=== PATIENT | female | born 1930 | race Caucasian/White ===

== ENCOUNTER 2016-03-28 14:16 | Inpatient (IN) | payer OTHER, MEDICARE ==
[~2016-03-28 14:16] MED LIST: ALBUTEROL 3 ML3 ML INH; ALEVE220 MG PO; ASPIR 8181 MG PO; AUGMENTIN 500M500 MG PO; CALCIMIN-300300 MG PO; CALCIUM 600600 M1 PO; CITALOPRAM20 MG PO; ENALAPRIL MALEAT5 MG PO; ERYTHROMYCIN5 MG/GM OS; HYDROCORTISONE V0.2% TOP; IMODIUM 2 MG. CA2 MG PO; KETOCONAZOLE 2%30 GM TOP; LOVASTATIN40 MG PO; MYCOSTATIN POWD15 GM TOP; NORCO 325 MG-51 TAB PO; PANTOPRAZOLE SO40 MG PO; PRAVACHOL40 MG PO; PREDNISONE 20MG20 MG PO; PREDNISONE10 MG PO; PRILOSEC 20MG C20 MG PO; PROAIR HFA0.09 MG/Ac INH; Robitussin PO; TESSALON PERLE100 MG PO; THERMAZENE TOP; TRAZODONE50 MG PO; VICODIN5-300 PO; VITAMIN D1000 IU PO
[2016-03-28] MEDS ORDERED: CITALOPRAM HBR20 MG PO (14:23)
[2016-03-28] MEDS ORDERED: LOSARTAN POTASS25 M1 PO (14:24)
[2016-03-28] MEDS ORDERED: OMEPRAZOLE20 M2 PO (14:24)
[2016-03-28] MEDS ORDERED: OXYCODONE-ACET1 EACH PO (14:24)
[2016-03-28] MEDS ORDERED: CALTRATE 600 +1 EACH PO (14:25)
[2016-03-28] MEDS ORDERED: PROAIR HFA8.5 GM INH (14:25)
--- NOTE | 2016-03-28 14:25 | ED GENERAL ADULT ---
History of Present Illness General Chief Complaint: Syncope and Near-Syncope Stated Complaint: BIBA +SYNCOPE Source: Healthcare aide Exam Limitations: patient's age, confusion, poor historian, physical impairment Vital Signs & Intake/Output Vital Signs & Intake/Output Vital Signs Date Time Temp Pulse Resp B/P Pulse O2 O2 Flow FiO2 Ox Delivery Rate 03/28 2110 97.4 66 20 134/82 94 Room Air 03/28 2030 96.0 69 16 142/92 96 03/28 1855 98.8 74 16 129/64 94 Room Air 03/28 1700 67 16 116/57 96 Room Air 03/28 1430 96 Room Air 03/28 1425 98.2 72 12 129/63 96 Room Air Allergies Coded Allergies: benzethonium chloride (Severe, RASH 03/28/16) Reconcile Medications Albuterol Sulfate (Proair Hfa) 90 MCG HFA.AER.AD 2 PUF INH Q4-6 PRN PRN BREATHING (Reported) Calcium Carbonate/Vitamin D3 (Caltrate 600 + D Tablet) 600 MG-800 TABLET 1 TAB PO DAILY SUPPLEMENT (Reported) Carbidopa/Levodopa (Carbidopa-Levodopa 25-250 Tab) 25 MG-250 MG TABLET MEMORY ( Reported) Citalopram Hydrobromide (Citalopram HBr) 20 MG TABLET 1 TAB PO DAILY DEPRESSION (Reported) Losartan Potassium 25 MG TABLET 1 TAB PO DAILY HTN (Reported) Omeprazole 20 MG CAPSULE.DR 1 CAP PO DAILY GERD (Reported) Oxycodone HCl/Acetaminophen (Oxycodone-Acetaminophen 5-325) 5 MG-325 MG TABLET 1 TAB PO BIDP PAIN (Reported) Triage Nurses Notes Reviewed? yes Onset: Abrupt Duration: day(s): Timing: recent history HPI: 03/28/16 85-year-old female presents to the emergency department status post multiple episodes of vomiting and a large bowel movement today. The patient was being ambulated and had an episode of vomiting and also a bowel movement today. This was while she was being ambulated, she felt weak afterwards and her legs nearly gave out. The onset of the symptoms was abrupt, the duration has been just today, the severity is significant as her symptoms required to come to the emergency department for care. Past History Medical History Any Pertinent Medical History? see below for history Neurological: Parkinson's disease, "THORAZINE SHUFFLE" ? 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 No Review of Systems Review of Systems Constitutional: Denies: fever. EENTM: Reports: no symptoms. Respiratory: Denies: short of breath. Cardiovascular: Denies: chest pain. GI: Reports: vomiting. Genitourinary: Reports: no symptoms. Musculoskeletal: Reports: see HPI. Skin: Reports: no symptoms. Neurological/Psychological: Reports: confusion. Hematologic/Endocrine: Reports: no symptoms. Physical Exam Physical Exam General Appearance: alert, nonverbal Head: atraumatic Eyes: Bilateral: normal appearance, PERRL, EOMI. Ears, Nose, Throat: dry mucous membranes Neck: supple Respiratory: decreased breath sounds Cardiovascular: regular rate/rhythm Peripheral Pulses: 4+ radial (R), 4+ radial (L) Gastrointestinal: soft, non-tender Back: decreased range of motion Extremities: no edema Neurologic/Psych: awake Skin: intact, warm/dry Core Measures ACS in differential dx? No CVA/TIA Diagnosis: No Severe Sepsis Present: No Septic Shock Present: No Progress Differential Diagnoses I considered the following diagnoses in my evaluation of the patient: [Viral syndrome, diverticulitis, ischemic colitis, partial bowel obstruction, volvulus] Chest x-ray shows no acute findings CT scan of the head was negative CT scan of the abdomen results below PATIENT: LINDSAY BROOKS PRESENT AGE: 85 PATIENT ACCOUNT NO: [id number] : [birth year] LOCATION: [facility] ORDERING PHYSICIAN: DC POE DO SERVICE DATE: 03/28/16 EXAM TYPE: CAT - CT ABD & PELVIS W/O IV CONTRAS EXAMINATION: CT ABDOMEN AND PELVIS WITHOUT CONTRAST CLINICAL INFORMATION: 85-year-old female with altered mental status and vomiting. Evaluate for bowel obstruction. COMPARISON: Chest CT from 09/23/2014 TECHNIQUE: Multidetector volumetric imaging was performed from the superior aspect of the liver through the pubic symphysis. Sagittal and coronal reformatted images were obtained on the technologist's workstation. DLP: 313 mGy-cm. FINDINGS: LUNG BASES: Cardiomegaly and atherosclerotic disease of coronary arteries and visualized thoracic aorta. No pulmonary edema. No pericardial or pleural effusion. LIVER, GALLBLADDER, AND BILIARY TREE: Liver is unremarkable for a noncontrast examination. No focal hepatic lesion or intrahepatic bile duct dilatation. There are noncalcified gallstones; these are more clearly seen on the prior chest CT of 09/23/2014. No gallbladder wall edema or pericholecystic inflammatory change PANCREAS: Unremarkable. SPLEEN: Spleen is normal in size. 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 ADRENAL GLANDS: Unremarkable. KIDNEYS AND URETERS: No hydronephrosis or nephrolithiasis. Bilateral renal cortical cysts, largest on the left measuring up to 2.4 cm. The ureters are unremarkable. BLADDER: Unremarkable. GASTROINTESTINAL TRACT: Fjinzqvf-cc-xkkxj hiatal hernia, unchanged in size compared to 09/23/2014. Stomach is moderately distended with fluid and has air-fluid levels. Below the level of the diaphragm, the gastric body has altered configuration compared to 09/23/2014. The gastric body appears partially folded, and the gastric antrum is relatively high in position compared to the to the gastric body. 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 Small and large bowel are normal in size. Pancolonic diverticulosis without diverticulitis. No ascites or pneumoperitoneum. ABDOMINAL WALL: Unremarkable. LYMPH NODES: No pathologic sized lymph nodes within the abdomen or pelvis. VASCULAR: There is atherosclerotic calcification of the abdominal aorta and iliac arteries without aneurysm. 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 PELVIC VISCERA: There are myometrial vascular calcifications. Multiple phleboliths within the lower pelvis. No pelvic free fluid. OSSEOUS STRUCTURES: Multilevel severe degenerative disc disease of the lumbar spine. Old anterior compression fracture deformities of T11 and L1 vertebral bodies. IMPRESSION: 1. Iridyiqz-pu-gurfh hiatal hernia. Below the level of the diaphragm, the orientation of the stomach appears altered compared to 09/23/2014. The gastric body appears partially folded, and the gastric antrum is relatively high in position compared to the to the gastric body. 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 2. Pancolonic diverticulosis without diverticulitis. 3. 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 DICTATED BY: DWAYNE RIDLEY MD DATE/TIME DICTATED:03/28/161653 AGENCY SALES DEVELOPMENT ASSOCIATE:AASHISH DATE/TIME TRANSCRIBED:03/28/161653 CONFIDENTIAL, DO NOT COPY WITHOUT APPROPRIATE AUTHORIZATION. <Electronically signed in Other Vendor System> SIGNED BY: DWAYNE RIDLEY MD 03/28/161721 The patient was treated with IV fluids. Surgical consultation was requested. I spoke with Dr. Correa and the surgical PA. Dr. Islas accepted the patient for admission. Plan of Care: Orders Procedure Date/time Status Nothing by Mouth 03/29 B Active Code Status 03/28 2125 Complete Code Status 03/28 2125 Active Pathway - chart 03/28 2100 Active House Staff 03/28 2100 Active Patient Data 03/28 2100 Active Code Status 03/28 2100 Complete Vital Signs 03/28 2044 Active Teach/Educate 03/28 2044 Active Nutritional Intake, Monitor 03/28 2044 Active Isolation 03/28 2044 Active Intake & Output 03/28 2044 Active Patient Care Conference 03/28 2044 Active Activity/Ambulation 03/28 2044 Active Patient Data 03/28 1927 Active Admit to inpatient 03/28 1925 Active Vital Signs 03/28 1925 Active Code Status 03/28 1925 Complete TROPONIN LEVEL 03/28 1448 Complete PROTHROMBIN TIME 03/28 1448 Complete COMPREHENSIVE METABOLIC PANEL 03/28 1448 Complete CBC WITHOUT DIFFERENTIAL 03/28 1448 Complete Intake & Output 03/28 1427 Active EKG 03/28 1418 Active SWALLOW EVALUATION 03/28 UNK Active PT Evaluate & Treat 03/28 UNK Active VTE Mechanical Prophylaxis 03/28 UNK Active Current Medications Sig/Song Start time Last Medication Dose Stop Time Status Admin Carbidopa/Levodopa 2 TAB DAILY 03/29 1000 AC (Sinemet 25/250MG) Citalopram 20 MG DAILY 03/29 1000 AC Hydrobromide (Celexa) Losartan Potassium 25 MG DAILY 03/29 1000 AC (Cozaar) Omeprazole 20 MG DAILY AC 03/29 0700 AC (Prilosec) Heparin Sodium 5,000 UNIT Q8 03/28 2200 AC (Porcine) Ondansetron HCl 4 MG Q6P PRN 03/28 2200 UNVr (Zofran) Dextrose/Sodium 1,000 ML Q13H 03/28 2130 AC Chloride 03/29 1029 (D5W-1/2 Normal Saline 1000ML) Albuterol Sulfate 2 PUF Q4-6 PRN PRN 03/28 211 AC (Ventolin) Acetaminophen 325 MG Q6P PRN 03/28 2100 AC (Tylenol) Laboratory Tests 03/28/16 1523: Anion Gap 11, Estimated GFR 52 L, BUN/Creatinine Ratio 22.0, Glucose 122 H, Calcium 9.5, Total Bilirubin 0.8, AST 20, ALT 7 L, Alkaline Phosphatase 98, Troponin I 0.02, Total Protein 7.8, Albumin 4.0, Globulin 3.8, Albumin/Globulin Ratio 1.1, PT 11.8, INR 1.13, CBC w Diff NO MAN DIFF REQ, RBC 5.17, MCV 85.1, MCH 28.2, RDW 13.9, MPV 9.5, Gran % 77.4 H, Lymphocytes % 14.4 L, Monocytes % 6.5, Eosinophils % 1.2, Basophils % 0.5, Absolute Granulocytes 5.3, Absolute Lymphocytes 1.0 L, Absolute Monocytes 0.4, Absolute Eosinophils 0.1, Absolute Basophils 0, PUBS MCHC 33.1 Initial ED EKG: no ST T wave changes Departure Departure Disposition: STILL A PATIENT Condition: Stable Clinical Impression Primary Impression: Abdominal pain Secondary Impressions: Dehydration, Parkinson disease, Weakness Referrals: KAR ISLAS MD (PCP/Family) Referred to [facility] as new patient No Departure Forms: Customer Survey General Discharge Information Admission Note Spoke With: KAR ISLAS MD Documentation of Exam: Documentation of any treatments & extenuating circumstances including Concerns Regarding Discharge (functional status, medication knowledge or non-compliance, living conditions, etc.) that warrant an admission rather than observation: [IV fluids, surgical consultation, IV antiemetics,] Critical Care Note Critical Care Note Critical Care Time: non-applicable
[2016-03-28] MEDS ORDERED: CARBIDOPA-LEVO1 EAC8 PO (14:26)
[2016-03-28 15:33] LABS: ABSOLUTE BASOPHIL COUNT 0 /CUMM (0.0-0.2); ABSOLUTE EOSINOPHIL COUNT 0.1 /CUMM (0.0-0.7); ABSOLUTE GRANULOCYTE CT 5.3 /CUMM (1.4-6.5); ABSOLUTE MONOCYTE COUNT 0.4 /CUMM (0.10-0.60); BASOPHIL % 0.5 % (0.0-2.0); EOSINOPHIL % 1.2 % (0-5); GRANULOCYTE % 77.4 % (42.2-75.2); MEAN CORPUSCULAR HGB 28.2 PG (27.0-31.0); MEAN CORPUSCULAR HGB CONC 33.1 G/DL (33.0-37.0); MEAN CORPUSCULAR VOLUME 85.1 FL (81.0-99.0); MEAN PLATELET VOLUME 9.5 FL (7.4-10.4); PLATELET COUNT 249 /CUMM (130-400); RBC DISTRIBUTION WIDTH 13.9 % (11.5-14.5); RED BLOOD CELL CT 5.17 /CUMM (4.20-5.40); WHITE BLOOD CELL COUNT 6.8 /CUMM (4.8-10.8)
[2016-03-28 15:44] LABS: PT 11.8 SEC (9.4-12.5)
--- NOTE | 2016-03-28 16:15 | RADIOLOGY REPORT ---
EXAMINATION: XR PORTABLE CHEST CLINICAL INFORMATION: Altered mental status. Vomiting. Rule out aspiration. COMPARISON: Multiple priors, most recently 10/26/2014 TECHNIQUE: Portable view of the chest was obtained. FINDINGS: Cardiac leads overlie the chest. The lungs are well expanded. Chronic appearing interstitial changes are noted. Moderate hiatal hernia noted. Minimal left basilar atelectasis. No dense consolidation. No pleural effusion or pneumothorax. The cardiomediastinal silhouette is unchanged, with a calcified aorta. Degenerative changes at the left shoulder. IMPRESSION: Chronic changes. Hiatal hernia with minimal associated atelectasis. No consolidation.
--- NOTE | 2016-03-28 17:00 | CT SCAN REPORT ---
EXAMINATION: CT HEAD WITHOUT CONTRAST CLINICAL INFORMATION: Altered mental status COMPARISON: 07/23/2012 TECHNIQUE: Contiguous axial imaging was performed from the skull base to vertex without intravenous contrast. DLP: 601 mGy-cm. FINDINGS: Patient positioning somewhat limits the evaluation. There is no evidence of acute intracranial hemorrhage or territorial infarction. No abnormal mass effect or midline shift is seen. Monsalve to white matter differentiation is well preserved. No extra-axial fluid collections are identified. No hydrocephalus. Proportional prominence of the ventricles and sulcal spaces is consistent with moderate volume loss. Patchy periventricular and deep white matter hypoattenuation is consistent with mild small vessel ischemic changes. The osseous structures and soft tissues are normal. There is moderate opacification of the maxillary sinuses and left sphenoid sinus. The mastoid air cells are well aerated. IMPRESSION: No acute intracranial pathology. Volume loss with small vessel ischemic change. Moderate paranasal sinus opacification is increased from prior.
--- NOTE | 2016-03-28 17:22 | CT SCAN REPORT ---
EXAMINATION: CT ABDOMEN AND PELVIS WITHOUT CONTRAST CLINICAL INFORMATION: 85-year-old female with altered mental status and vomiting. Evaluate for bowel obstruction. COMPARISON: Chest CT from 09/23/2014 TECHNIQUE: Multidetector volumetric imaging was performed from the superior aspect of the liver through the pubic symphysis. Sagittal and coronal reformatted images were obtained on the technologist's workstation. DLP: 313 mGy-cm. FINDINGS: LUNG BASES: Cardiomegaly and atherosclerotic disease of coronary arteries and visualized thoracic aorta. No pulmonary edema. No pericardial or pleural effusion. LIVER, GALLBLADDER, AND BILIARY TREE: Liver is unremarkable for a noncontrast examination. No focal hepatic lesion or intrahepatic bile duct dilatation. There are noncalcified gallstones; these are more clearly seen on the prior chest CT of 09/23/2014. No gallbladder wall edema or pericholecystic inflammatory change PANCREAS: Unremarkable. SPLEEN: Spleen is normal in size. 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 ADRENAL GLANDS: Unremarkable. KIDNEYS AND URETERS: No hydronephrosis or nephrolithiasis. Bilateral renal cortical cysts, largest on the left measuring up to 2.4 cm. The ureters are unremarkable. BLADDER: Unremarkable. GASTROINTESTINAL TRACT: Rnkgycrm-pt-xxsqy hiatal hernia, unchanged in size compared to 09/23/2014. Stomach is moderately distended with fluid and has air-fluid levels. Below the level of the diaphragm, the gastric body has altered configuration compared to 09/23/2014. The gastric body appears partially folded, and the gastric antrum is relatively high in position compared to the to the gastric body. 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 Small and large bowel are normal in size. Pancolonic diverticulosis without diverticulitis. No ascites or pneumoperitoneum. ABDOMINAL WALL: Unremarkable. LYMPH NODES: No pathologic sized lymph nodes within the abdomen or pelvis. VASCULAR: There is atherosclerotic calcification of the abdominal aorta and iliac arteries without aneurysm. 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 PELVIC VISCERA: There are myometrial vascular calcifications. Multiple phleboliths within the lower pelvis. No pelvic free fluid. OSSEOUS STRUCTURES: Multilevel severe degenerative disc disease of the lumbar spine. Old anterior compression fracture deformities of T11 and L1 vertebral bodies. IMPRESSION: 1. Ihvrqjyd-ny-nzavb hiatal hernia. Below the level of the diaphragm, the orientation of the stomach appears altered compared to 09/23/2014. The gastric body appears partially folded, and the gastric antrum is relatively high in position compared to the to the gastric body. 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 2. Pancolonic diverticulosis without diverticulitis. 3. 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
--- NOTE | 2016-03-28 20:06 | Cons- General Surgery ---
See Addendum General Information and HPI Consulting Request Date of Consult: 03/28/16 Requested By: KAR ISLAS MD Reason for Consult: Vomiting and possible mesenteric volvulus on CAT scan Source of Information: old records, [facility] Exam Limitations: unable to give history, not alert/orientated, dementia History of Present Illness: This is an 85-year-old female sent from care facility due to a presyncopal episode and associated two episodes of vomiting. The emergency department workup revealed a possible mesenteric volvulus on CAT scan. The patient has a known hiatal hernia and had a large bowel movements with no episodes of vomiting while in the emergency department. The patient is minimally verbal and unable to give any history. She appears comfortable and per nursing staff no pressing issues. Allergies/Medications Allergies: Coded Allergies: MDX - Benzethonium (From PERINEAL SKIN CLEANSER) (Mild, RASH 09/19/14) Home Med List: Albuterol Sulfate (Proair Hfa) 90 MCG HFA.AER.AD 2 PUF INH Q4-6 PRN PRN BREATHING (Reported) Calcium Carbonate/Vitamin D3 (Caltrate 600 + D Tablet) 600 MG-800 TABLET 1 TAB PO DAILY SUPPLEMENT (Reported) Carbidopa/Levodopa (Carbidopa-Levodopa 25-250 Tab) 25 MG-250 MG TABLET MEMORY ( Reported) Citalopram Hydrobromide (Citalopram HBr) 20 MG TABLET 1 TAB PO DAILY DEPRESSION (Reported) Losartan Potassium 25 MG TABLET 1 TAB PO DAILY HTN (Reported) Omeprazole 20 MG CAPSULE.DR 1 CAP PO DAILY GERD (Reported) Oxycodone HCl/Acetaminophen (Oxycodone-Acetaminophen 5-325) 5 MG-325 MG TABLET 1 TAB PO BIDP PAIN (Reported) Past History Medical History Neurological: "THORAZINE SHUFFLE" ? 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 Surgical History Pertinent Surgical History: knee replacement, SHOULDER REPLACEMENT Family History Relations & Conditions If Any: Relation not specified for: *No pertinent family history Psychosocial History Services at Home: Home Health Aide, Nursing Review of Systems Review of Systems: Unable to obtain due to mental status Exam & Diagnostic Data Vital Signs and I&O Vital Signs Date Time Temp Pulse Resp B/P Pulse O2 O2 Flow FiO2 Ox Delivery Rate 03/28 1855 98.8 74 16 129/64 94 Room Air 03/28 1700 67 16 116/57 96 Room Air 03/28 1430 96 Room Air 03/28 1425 98.2 72 12 129/63 96 Room Air Intake & Output 03/28 1600 03/28 0800 03/28 0000 03/27 1600 03/27 0800 03/27 0000 Intake Total 0 Output Total Balance 0 Intake, Oral 0 Laboratory Tests 03/28 1523 Chemistry Sodium (137 - 145 mmol/L) 139 Potassium (3.5 - 5.1 mmol/L) 4.2 Chloride (98 - 107 mmol/L) 96 L Carbon Dioxide (22 - 30 mmol/L) 32 H Anion Gap (5 - 16) 11 BUN (7 - 17 mg/dL) 22 H Creatinine (0.5 - 1.0 mg/dL) 1.0 Estimated GFR (>60 ml/min) 52 L BUN/Creatinine Ratio (7 - 25 %) 22.0 Glucose (65 - 99 mg/dL) 122 H Calcium (8.4 - 10.2 mg/dL) 9.5 Total Bilirubin (0.2 - 1.3 mg/dL) 0.8 AST (14 - 36 U/L) 20 ALT (9 - 52 U/L) 7 L Alkaline Phosphatase (<127 U/L) 98 Troponin I (< 0.11 ng/ml) 0.02 Total Protein (6.3 - 8.2 g/dL) 7.8 Albumin (3.5 - 5.0 g/dL) 4.0 Globulin (1.9 - 4.2 gm/dL) 3.8 Albumin/Globulin Ratio (1.1 - 2.2 %) 1.1 Coagulation PT (9.4 - 12.5 SEC) 11.8 INR (0.90 - 1.19) 1.13 Hematology CBC w Diff NO MAN DIFF REQ WBC (4.8 - 10.8 /CUMM) 6.8 RBC (4.20 - 5.40 /CUMM) 5.17 Hgb (12.0 - 16.0 G/DL) 14.6 Hct (37 - 47 %) 44.0 MCV (81.0 - 99.0 FL) 85.1 MCH (27.0 - 31.0 PG) 28.2 RDW (11.5 - 14.5 %) 13.9 Plt Count (130 - 400 /CUMM) 249 MPV (7.4 - 10.4 FL) 9.5 Gran % (42.2 - 75.2 %) 77.4 H Lymphocytes % (20.5 - 51.1 %) 14.4 L Monocytes % (1.7 - 9.3 %) 6.5 Eosinophils % (0 - 5 %) 1.2 Basophils % (0.0 - 2.0 %) 0.5 Absolute Granulocytes (1.4 - 6.5 /CUMM) 5.3 Absolute Lymphocytes (1.2 - 3.4 /CUMM) 1.0 L Absolute Monocytes (0.10 - 0.60 /CUMM) 0.4 Absolute Eosinophils (0.0 - 0.7 /CUMM) 0.1 Absolute Basophils (0.0 - 0.2 /CUMM) 0 PUBS MCHC (33.0 - 37.0 G/DL) 33.1 CAT scan of the abdomen and pelvis.: MPRESSION: 1. Jkftrdsi-xn-nwwao hiatal hernia. Below the level of the diaphragm, the orientation of the stomach appears altered compared to 09/23/2014. The gastric body appears partially folded, and the gastric antrum is relatively high in position compared to the to the gastric body. 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 2. Pancolonic diverticulosis without diverticulitis. 3. 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 Physical Exam: Gen.: Alert but minimally verbal and in no obvious distress Skin: Warm and dry without jaundice Cardiac: S1-S2 regular Pulmonary: Bilateral breath sounds are equal with fine expiratory wheezes Abdomen: Soft, nontender, nondistended, bowel sounds positive. No masses or hernias were appreciated. Erythema and rash under the pannicular folds consistent with a yeast infection Extremities: Bilateral lower extremities are warm without calf tenderness or significant edema. Assessment/Plan Assessment/Plan S1: 85-year-old female brought into the emergency department with a presyncopal episode and episodes of emesis. The CAT scan was reviewed by myself and Clarence Varner MD and compared to a previous CAT scan and there is definite hiatal hernia but we see no evidence of volvulus or urgent surgical intervention. She has a benign abdominal exam with reasonable laboratory studies. Recommendations: No surgical intervention the current time continue care per emergency department staff primary care physician Thank you for consultation Problem List: 1. Vomiting Consult Acknowledgment - Thank you for your consult request.
[2016-03-28 21:10] VITALS: BP 134/82
--- NOTE | 2016-03-28 21:13 | History & Physical ---
General Information and HPI MD Statement: I have seen and personally examined LINDSAY BROOKS and documented this H&P. The patient is a 85 year old F who presented with a patient stated chief complaint of [generalized weakness and a large bowel movement with presyncopal episode]. Source of Information: family, old records, [facility] Exam Limitations: unable to give history, not alert/orientated, dementia History of Present Illness: 85/F with PMH of HTN, HLD, Parkinson's disease, and GI bleed who was brought to [facility] ED by her son because of generalized weakness and the large bowel movement earlier today. Patient was walked by her nurse to the bathroom when she suddenly felt weak and was about to fall if her nurse did not support her. Eventually she made it to the toilet and the nurse reported a large nonbloody bowel movement. Patient also had an episode of nonbloody vomiting. During the last week patient has poor appetite and was weak. Patient did not have symptoms of acute abdomen as fever, chills, diarrhea, or abdominal pain. No chest pain, palpitation, dizziness, or urinary symptom. Patient did not fall or lose consciousness. At baseline patient use a walker to ambulate. She has 24/7 nursing aid. Allergies/Medications Allergies: Coded Allergies: benzethonium chloride (Severe, RASH 03/28/16) Home Med list Albuterol Sulfate (Proair Hfa) 90 MCG HFA.AER.AD 2 PUF INH Q4-6 PRN PRN BREATHING (Reported) Calcium Carbonate/Vitamin D3 (Caltrate 600 + D Tablet) 600 MG-800 TABLET 1 TAB PO DAILY SUPPLEMENT (Reported) Carbidopa/Levodopa (Carbidopa-Levodopa 25-250 Tab) 25 MG-250 MG TABLET MEMORY ( Reported) Citalopram Hydrobromide (Citalopram HBr) 20 MG TABLET 1 TAB PO DAILY DEPRESSION (Reported) Losartan Potassium 25 MG TABLET 1 TAB PO DAILY HTN (Reported) Omeprazole 20 MG CAPSULE.DR 1 CAP PO DAILY GERD (Reported) Oxycodone HCl/Acetaminophen (Oxycodone-Acetaminophen 5-325) 5 MG-325 MG TABLET 1 TAB PO BIDP PAIN (Reported) Past History Travel History Traveled to [place] past 21 day No Medical History Neurological: "THORAZINE SHUFFLE" ? 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 Denies: chills, fever. Cardiovascular: Denies: chest pain, orthopena, palpitations, peripheral edema, syncope. Respiratory: Denies: cough, short of breath, wheezing. GI: Reports: vomiting. Denies: abdominal pain, constipation, diarrhea, nausea, bloody stool. Genitourinary: Denies: dysuria. Skin: Denies: rash. Exam & Diagnostic Data Last 24 Hrs of Vital Signs/I&O Vital Signs Date Time Temp Pulse Resp B/P Pulse O2 O2 Flow FiO2 Ox Delivery Rate 03/29 0024 97.5 62 20 160/80 96 03/28 2110 97.4 66 20 134/82 94 Room Air 03/28 2030 96.0 69 16 142/92 96 03/28 1855 98.8 74 16 129/64 94 Room Air 03/28 1700 67 16 116/57 96 Room Air 03/28 1430 96 Room Air 03/28 1425 98.2 72 12 129/63 96 Room Air Intake & Output 03/29 0800 03/29 0000 03/28 1600 Intake Total 150 0 Output Total Balance 150 0 Intake, IV 150 Intake, Oral 0 0 Physical Exam General Appearance Alert, Cooperative, No Acute Distress, not oriented, minimally verbal at baseline, always use 1 word to respond Skin No Rashes HEENT Atraumatic, PERRLA, EOMI, Mucous Membr. moist/pink Neck No JVD Cardiovascular Regular Rate, Normal S1, Normal S2, No Murmurs Lungs Clear to Auscultation, Normal Air Movement Abdomen Soft, No Tenderness Extremities No Cyanosis, No Edema Last 24 Hrs of Labs/Jean: Laboratory Tests 03/28/16 1523: Anion Gap 11, Estimated GFR 52 L, BUN/Creatinine Ratio 22.0, Glucose 122 H, Calcium 9.5, Total Bilirubin 0.8, AST 20, ALT 7 L, Alkaline Phosphatase 98, Troponin I 0.02, Total Protein 7.8, Albumin 4.0, Globulin 3.8, Albumin/Globulin Ratio 1.1, PT 11.8, INR 1.13, CBC w Diff NO MAN DIFF REQ, RBC 5.17, MCV 85.1, MCH 28.2, RDW 13.9, MPV 9.5, Gran % 77.4 H, Lymphocytes % 14.4 L, Monocytes % 6.5, Eosinophils % 1.2, Basophils % 0.5, Absolute Granulocytes 5.3, Absolute Lymphocytes 1.0 L, Absolute Monocytes 0.4, Absolute Eosinophils 0.1, Absolute Basophils 0, PUBS MCHC 33.1 Assessment/Plan Assessment: Assessment and plan #presyncopal in the setting of Vomiting and large bowel movements CAT scan evidence hiatal hernia, gastric body appears partially folded, 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 Surgery was consulted and they recommended conservative management with no interventions, as there is no evidence of acute abdomen at the moment. * We will gently hydrate with D5W half normal saline at rate of 75 mL/H. * IV Zofran when necessary for nausea. * PT evaluation in a.m. for safe disposition * We will repeat BEP at a.m #GERD * Omeprazole 20 mg by mouth daily #Hypertension * Continue losartan 25 mg by mouth daily #Parkinsonism * We will continue carbidopa/levodopa #Dysphagia * Nothing by mouth until swallow evaluation at a.m. Fluid :IV normal saline Diet :NPO Pain: Acetaminophen(Tylenol) DVT ppx: SC heparin CODE STATUS: Full code As Ranked By This Provider Problem List: 1. Weakness 2. Parkinson disease 3. Vomiting Core Measures/Miscellaneous Acute Coronary Syndrome ACS Diagnosis: No Cerebrovascular Accident CVA/TIA Diagnosis: No Congestive Heart Failure CHF Diagnosis: No Venous Thromboembolism VTE Risk Factors: Acute medical illness, Age > 40 VTE Prophylaxis Ordered Inpt: Mech & Pharm No Mech VTE prophylaxis d/t: No contraindications No VTE Pharm Prophylaxis d/t: No contraindications VTE Diagnosis: No VTE Type: NONE VTE Confirmed by (Test): NONE Severe Sepsis Severe Sepsis Present: No Septic Shock Septic Shock Present: No Miscellaneous Documentation Attending Case Discussed With: KAR ISLAS MD Primary Care Physician: KAR ISLAS MD Patient sees these Specialists KAR ISLAS MD Level of Patient Care: General Medicine Resident Review Statement Resident Statement: examined this patient, discussed with communications intern Other Findings: Patient is 85-year-old female minimally verbal at baseline with past medical history of hypertension, hyperlipidemia, GI bleed, parkinsonism who was brought into the hospital from home by his son for increased weakness and a large bowel movement today. Patient's onset that she went to the bathroom this morning with her nurse, and certainly felt weak and her legs gave up. She was supported and put on the toilet by her nurse and apparently she had a large bowel movement. She also had one episode of vomiting. The bowel was normal consistency, no blood noticed. Patient did not have any fever, chills, nausea, abdominal pain, diarrhea, constipation, palpitations, chest pain, urinary symptoms. No sick contacts. No falls/syncopal episodes. Patient's son states that she has been a little weak over the last few days with poor by mouth intake. At baseline, she walks with a walker and has been a 24 hour nursing care. In the ED vitals temperature 98.2, pulse 72, respiration 12, blood pressure 129/ 62, saturating 96% on room air. Pertinent labs showed creatinine of 1(baseline 1.2), negative troponins, normal electrolytes. Chest x-ray: Chronic changes with hiatal hernia and minimal atelectasis. No consolidation. Head CT: Negative. Abdomen and pelvis CT showed moderate to large hiatal hernia. 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 Pancolitic diverticulosis without diverticulitis. 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 Surgery Dr. Correa reviewed the CAT scan and felt as there was no evidence of volvulus , no need of any urgent surgical intervention. Physical exam: Gen.: Awake, alert minimally verbal at baseline, no apparent distress HEENT: PERRLA, EOMI CVS: S1-S2, no murmurs Respiration: Good air entry, mild crackles at bases bilaterally Neurological: Resting Tremors Extremities: No edema, good pulses Plan: * Vomiting and diarrhea with CAT scan evidence of ?partial mesenteroaxial volvulus * Weakness and deconditioning * Hypertension and hyperlipidemia * Parkinsonism * Dysphagia Recommendations * Admit to [facility] * Gentle hydration with normal saline at 75 mL an hour * Nothing by mouth pending swallow evaluation * Swallow eval in a.m. * IV Zofran when necessary for nausea * Surgery consulted, conservative measures, no need of urgent surgical intervention as no evidence of volvulus on CAT scan and benign abdominal examination * PT evaluation in a.m. for safe disposition * Continue Sinemet for parkinsonism * Continue losartan for hypertension * Subcutaneous heparin for DVT prophylaxis * Full code
[2016-03-29 00:24] VITALS: BP 160/80
--- NOTE | 2016-03-29 07:09 | Admission Certification ---
Admission Certification Certification Statement - As attending physician, I certify that at the time of - admission, based on clinical presentation, severity of - symptoms, need for further diagnostic testing and - therapeutic interventions, and risk of adverse outcomes - without in-hospital treatment, in my clinical assessment, - this patient requires an acute hospital stay for a minimum - of two nights or longer. I have also considered psychsocial - factors such as support system, advanced age, financial - issues, cognitive issues, and failed out-patient treatments, - past re-admission history, safety of patient, and lack of - compliance as applicable. Specific rationale supporting this admission is: Patient is admitted to the hospital for abdominal pain with nausea and vomiting.
--- NOTE | 2016-03-29 07:15 | PN- Att Addend ---
Attending Addendum Attending Brief Note Attending admitting note. 85-year-old lady presents to the emergency room with generalized weakness and apparently had a large BM with questionable presyncopal episode. Patient has history long-standing history of Parkinson's disease with some autonomic dysfunction in the past at times when she goes to the bathroom she has question of her syncopal episodes probably due to autonomic dysfunction Past medical history of Parkinson's disease hypertension dyslipidemia history of coronary artery disease history of GERD OSTEOARTHRITIS of the shoulders and the knees. History of also mild dementia patient is hard of hearing. On examination patient is awake alert hard of hearing. Vital signs blood pressure is 150/80 heart rate is 64 respirations 17 S1-S2 is normal Lungs are clear Abdomen is soft nontender bowel sounds are present Patient is no focal neurological deficit. Lab shows hemoglobin is 14.6 hematocrit is 44 white count is 6.0. Sodium is 139 potassium 4.2 chloride 96 bicarbonate is 32 [place] is 22 creatinine 1.0 CAT scan of the abdomen shows evidence of hiatal hernia questionable the mesentroaxial volvulus of the stomach Patient was seen by the surgical team no active measures to be taken right now. Plan is to mobilize the patient. The patient out of bed to chair. Consider short-term rehabilitation Continue IV fluids questionable Zofran for nausea. Continue rest of the medications
[2016-03-29 08:18] VITALS: BP 120/64
--- NOTE | 2016-03-29 11:26 | PN- Housestaff ---
Subjective Follow-up For: 1. 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 Failure to thrive - weakness and deconditioning 3. Parkinsonism 4. Dysphagia Subjective: Patient seen and examined at bedside. She remains awake and alert but minimally verbal at baseline. She apperas to be in no apparent distress. Remains afebrile and HDS with stable VS. Pending for swallow eval today. Review of Systems Constitutional: Reports: see HPI. Objective Last 24 Hrs of Vital Signs/I&O Vital Signs Date Time Temp Pulse Resp B/P Pulse O2 O2 Flow FiO2 Ox Delivery Rate 03/29 1845 97.5 60 20 124/78 95 03/29 0952 68 122/78 03/29 0818 97.7 60 20 120/64 94 Room Air 03/29 0024 97.5 62 20 160/80 96 03/28 2110 97.4 66 20 134/82 94 Room Air 03/28 2030 96.0 69 16 142/92 96 Intake & Output 03/29 1600 03/29 0800 03/29 0000 Intake Total 500 600 150 Output Total Balance 500 600 150 Intake, IV 500 600 150 Intake, Oral 0 0 0 Number 0 Bowel Movements Physical Exam General Appearance: Alert, Oriented X3, Cooperative, No Acute Distress Other Physical Findings: HEENT: PERRLA, EOMI CVS: S1-S2, no murmurs Respiration: Good air entry, mild crackles at bases bilaterally Neurological: Resting Tremors Extremities: No edema, good pulses Current Medications: Current Medications Sig/Song Start time Last Medication Dose Route Stop Time Status Admin Acetaminophen 325 MG Q6P PRN 03/28 2100 AC PO Albuterol Sulfate 2 PUF Q4-6 PRN PRN 03/28 2115 AC INH Carbidopa/Levodopa 2 TAB DAILY 03/29 1000 AC 03/29 PO 0950 Citalopram 20 MG DAILY 03/29 1000 AC 03/29 Hydrobromide PO 0950 Dextrose/Sodium 1,000 ML Q20H 03/29 1245 AC 03/29 Chloride IV 03/30 0844 1245 Dextrose/Sodium 1,000 ML Q13H 03/28 2130 DC 03/28 Chloride IV 03/29 1029 2226 Heparin Sodium 5,000 UNIT Q8 03/28 2200 AC 03/29 (Porcine) SC 1419 Losartan Potassium 25 MG DAILY 03/29 1000 AC 03/29 PO 0952 Omeprazole 20 MG DAILY AC 03/29 0700 AC PO Ondansetron HCl 4 MG Q6P PRN 03/28 2200 AC IV Potassium Chloride 10 MEQ ONCE ONE 03/29 1730 DC 03/29 IV 03/29 1731 1744 Potassium Chloride 10 MEQ ONCE ONE 03/29 1730 DC IV 03/29 1731 Last 24 Hrs of Lab/Jean Results Last 24 Hrs of Labs/Mics: Laboratory Tests 03/29/16 0645: Anion Gap 9, Estimated GFR > 60, BUN/Creatinine Ratio 21.3 Assessment/Plan Assessment: 85-year-old minimally verbal female at baseline with past medical history of hypertension, hyperlipidemia, GI bleed, parkinsonism, presenting with increased weakness and deconditioning. 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 for safe disposition * Continue Sinemet for parkinsonism * Continue losartan for hypertension * Subcutaneous heparin for DVT prophylaxis * Full code Problem List: 1. Parkinson disease 2. Vomiting 3. Weakness 4. DVT prophylaxis 5. Full code status Pain Ratin Pain Location: 0 Pain Goal: Remain pain free Pain Plan: Mild pain pathway Tomorrow's Labs & Rationales: CBC BEP
--- NOTE | 2016-03-29 17:15 | RADIOLOGY REPORT ---
EXAMINATION: XR MODIFIED BARIUM SWALLOW CLINICAL INFORMATION: Aspiration risk COMPARISON: 09/20/2014 TECHNIQUE: Videotaped real-time fluoroscopic evaluation of the patient's swallow was performed in conjunction with speech therapy through the administration of various textured food and barium, including puree, honey, and nectar consistencies. Patient was in a left seated lateral position. FINDINGS: The oropharyngeal phase of swallowing was intermittently delayed throughout the exam, with lingual pumping noted. Several swallows of each consistency were performed. With puree consistency, there were episodes of premature spillage into the vallecula; no penetration or aspiration was seen. With honey thick consistency, there were multiple episodes of premature spillage into the vallecula and a single instance of penetration which did not elicit a spontaneous cough. With nectar consistency, premature spillage was observed into the vallecula and piriform sinuses to varying degrees throughout the swallows; one episode of penetration was observed which did not elicit a spontaneous cough. No patrice aspiration was seen during the exam. IMPRESSION: Single episodes of penetration observed with honey thick and nectar consistencies. No aspiration observed.
[2016-03-29 18:45] VITALS: BP 124/78
[2016-03-30 00:40] VITALS: BP 144/72
[2016-03-30 06:49] VITALS: BP 140/72
--- NOTE | 2016-03-30 12:51 | PN- Housestaff ---
SINDY CEDILLO,[facility] 03/30/16 1251: Subjective Follow-up For: 1. 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 Failure to thrive - weakness and deconditioning 3. Parkinsonism 4. Dysphagia Subjective: Patient seen and examined at bedside. She remains minimally verbal which is her baseline. She apperas to be in no apparent distress. Remains afebrile and HDS with stable VS. Review of Systems Constitutional: Reports: see HPI. Objective Last 24 Hrs of Vital Signs/I&O Vital Signs Date Time Temp Pulse Resp B/P Pulse O2 O2 Flow FiO2 Ox Delivery Rate 03/30 0833 68 140/78 03/30 0649 97.7 58 20 140/72 95 Room Air 03/30 0040 98.1 68 19 144/72 96 03/29 1845 97.5 60 20 124/78 95 Intake & Output 03/30 1600 03/30 0800 03/30 0000 Intake Total 520 900 Output Total Balance 520 900 Intake, IV 400 400 Intake, Oral 120 500 Number 1 2 Bowel Movements Physical Exam General Appearance: Alert, Oriented X3, Cooperative Cardiovascular: Regular Rate, Normal S1, Normal S2 Lungs: Clear to Auscultation, Normal Air Movement Abdomen: Normal Bowel Sounds, Soft Extremities: No Clubbing, No Cyanosis, No Edema Current Medications: Current Medications Sig/Song Start time Last Medication Dose Route Stop Time Status Admin Acetaminophen 325 MG Q6P PRN 03/28 2100 AC PO Albuterol Sulfate 2 PUF Q4-6 PRN PRN 03/28 2115 AC INH Carbidopa/Levodopa 2 TAB DAILY 03/29 1000 AC 03/30 PO 0833 Citalopram 20 MG DAILY 03/29 1000 AC 03/30 Hydrobromide PO 0833 Dextrose/Sodium 1,000 ML Q20H 03/29 1245 DC 03/29 Chloride IV 03/30 0844 1245 Heparin Sodium 5,000 UNIT Q8 03/28 2200 AC 03/30 (Porcine) SC 0646 Losartan Potassium 25 MG DAILY 03/29 1000 AC 03/30 PO 0833 Nystatin 1 [place] TID 03/30 1019 AC 03/30 TOP 1236 Omeprazole 20 MG DAILY AC 03/29 0700 AC 03/30 PO 0646 Ondansetron HCl 4 MG Q6P PRN 03/28 2200 AC IV Potassium Chloride 10 MEQ ONCE ONE 03/29 1730 DC 03/29 IV 03/29 1731 1744 Potassium Chloride 10 MEQ ONCE ONE 03/29 1730 DC 03/29 IV 03/29 1731 2037 Vitamin A/Vitamin D 1 [place] BID 03/30 0350 AC 03/30 TOP 0645 Zinc Oxide 1 [place] BID 03/30 0350 03/30 TOP 0645 Last 24 Hrs of Lab/Jean Results Last 24 Hrs of Labs/Mics: Laboratory Tests 03/30/16 0630: Anion Gap 9, Estimated GFR > 60, BUN/Creatinine Ratio 15.0 Assessment/Plan Assessment: 85-year-old minimally verbal female at baseline with past medical history of hypertension, hyperlipidemia, GI bleed, parkinsonism, presenting with increased weakness and deconditioning. 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 * IV Zofran PRN for nausea * Surgery was consulted and recommended conservative measures - no need of urgent surgical intervention as no evidence of volvulus on CAT scan and benign abdominal examination * Follow PT evaluation in a.m. for safe disposition * Continue Sinemet for parkinsonism * Continue losartan for hypertension * Subcutaneous heparin for DVT prophylaxis * Full code Problem List: 1. Parkinson disease 2. Vomiting 3. Weakness 4. Full code status Pain Ratin Pain Location: none Pain Goal: Remain pain free Pain Plan: Mild pain pathway Tomorrow's Labs & Rationales: CBC BEP KATIE CEDILLO,ARIA 03/30/16 1556: Attending MD Review Statement Attending Statement Attending MD Statement: examined this patient, agreed w/resident/PA/[employer]ING OFFIC[employer], reviewed EMR data (avail), amended to note Attending Assessment/Plan: Mrs. Jerome is minimally verbal but is in no acute distress. Her vitals are stable and her exam is benign. She appears to be tolerating by mouth intake without vomiting. I agree with the reevaluation her status in the a.m. and at that time might possibly consider discharge.
[2016-03-30 17:02] VITALS: BP 142/80
[2016-03-31 00:33] VITALS: BP 126/68
[2016-03-31 07:02] VITALS: BP 126/76
[2016-03-31 08:16] LABS: ABSOLUTE BASOPHIL COUNT 0 /CUMM (0.0-0.2); ABSOLUTE EOSINOPHIL COUNT 0.1 /CUMM (0.0-0.7); ABSOLUTE GRANULOCYTE CT 3.8 /CUMM (1.4-6.5); ABSOLUTE LYMPH COUNT 2.2 /CUMM (1.2-3.4); ABSOLUTE MONOCYTE COUNT 0.6 /CUMM (0.10-0.60); BASOPHIL % 0.6 % (0.0-2.0); EOSINOPHIL % 1.8 % (0-5); HEMATOCRIT 39.8 % (37-47); MEAN CORPUSCULAR HGB 28.2 PG (27.0-31.0); MEAN CORPUSCULAR HGB CONC 33.2 G/DL (33.0-37.0); MEAN CORPUSCULAR VOLUME 85.1 FL (81.0-99.0); PLATELET COUNT 202 /CUMM (130-400); RBC DISTRIBUTION WIDTH 13.8 % (11.5-14.5); RED BLOOD CELL CT 4.68 /CUMM (4.20-5.40); WHITE BLOOD CELL COUNT 6.7 /CUMM (4.8-10.8)
--- NOTE | 2016-03-31 08:41 | PN- Housestaff ---
Subjective Follow-up For: 1. 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 Failure to thrive - weakness and deconditioning 3. Parkinsonism 4. Dysphagia Subjective: Patient seen and examined at bedside. She remains minimally verbal which is her baseline. Remains afebrile and HDS with stable VS. She apperas to be in no apparent distress. Review of Systems Constitutional: Reports: see HPI. Objective Last 24 Hrs of Vital Signs/I&O Vital Signs Date Time Temp Pulse Resp B/P Pulse O2 O2 Flow FiO2 Ox Delivery Rate 03/31 0756 76 122/76 03/31 0702 97.4 61 20 126/76 96 03/31 0033 97.7 68 20 126/68 94 03/30 1702 98.1 66 20 142/80 95 Intake & Output 03/31 1600 03/31 0800 03/31 0000 Intake Total 50 500 Output Total Balance 50 500 Intake, IV 400 Intake, Oral 50 100 Number 3 Bowel Movements Physical Exam General Appearance: No Acute Distress Cardiovascular: Regular Rate, Normal S1, Normal S2 Lungs: Clear to Auscultation Abdomen: Normal Bowel Sounds, Soft, No Tenderness Extremities: No Clubbing, No Cyanosis, No Edema Current Medications: Current Medications Sig/Song Start time Last Medication Dose Route Stop Time Status Admin Acetaminophen 650 MG .STK-MED ONE 03/30 2210 DC PO 03/30 221 Acetaminophen 325 MG Q6P PRN 03/28 2100 AC 03/30 PO 2214 Albuterol Sulfate 2 PUF Q4-6 PRN PRN 03/28 2115 AC INH Carbidopa/Levodopa 2 TAB DAILY 03/29 1000 AC 03/31 PO 0757 Citalopram 20 MG DAILY 03/29 1000 AC 03/31 Hydrobromide PO 0757 Heparin Sodium 5,000 UNIT Q8 03/28 2200 AC 03/31 (Porcine) SC 0659 Losartan Potassium 25 MG DAILY 03/29 1000 AC 03/31 PO 0756 Nystatin 1 [place] TID 03/30 1019 AC 03/31 TOP 0757 Omeprazole 20 MG DAILY AC 03/29 0700 AC 03/31 PO 0659 Ondansetron HCl 4 MG Q6P PRN 03/28 2200 AC IV Vitamin A/Vitamin D 1 [place] BID 03/30 0350 AC 03/31 TOP 0757 Zinc Oxide 1 [place] BID 03/30 0350 AC 03/31 TOP 0757 Last 24 Hrs of Lab/Jean Results Last 24 Hrs of Labs/Mics: Laboratory Tests 03/31/16 0620: Anion Gap 12, Estimated GFR 59 L, BUN/Creatinine Ratio 13.3, CBC w Diff NO MAN DIFF REQ, RBC 4.68, MCV 85.1, MCH 28.2, RDW 13.8, MPV 10.0, Gran % 56.0, Lymphocytes % 32.6, Monocytes % 9.0, Eosinophils % 1.8, Basophils % 0.6, Absolute Granulocytes 3.8, Absolute Lymphocytes 2.2, Absolute Monocytes 0.6, Absolute Eosinophils 0.1, Absolute Basophils 0, PUBS MCHC 33.2 Assessment/Plan Assessment: 85-year-old minimally verbal female at baseline with past medical history of hypertension, hyperlipidemia, GI bleed, parkinsonism, presenting with increased weakness and deconditioning. 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 * IV Zofran PRN for nausea * Surgery was consulted and recommended conservative measures - no need of urgent surgical intervention as no evidence of volvulus on CAT scan and benign abdominal examination * Follow PT evaluation in a.m. for safe disposition * Continue Sinemet for parkinsonism * Continue losartan for hypertension * Subcutaneous heparin for DVT prophylaxis * Full code Problem List: 1. Parkinson disease 2. Dehydration 3. Abdominal pain 4. Aspiration pneumonia Pain Ratin Pain Location: none Pain Goal: Remain pain free Pain Plan: Mild pain pathway Tomorrow's Labs & Rationales: none
--- NOTE | 2016-03-31 10:42 | Discharge Summary ---
Visit Information Visit Dates Admission Date: 03/28/16 Discharge Date: 04/01/16 Hospital Course Course Attending Physician: KAR ISLAS MD Primary Care Physician: KAR ISLAS MD Hospital Course: Patient is 85-year-old female minimally verbal at baseline with past medical history of hypertension, hyperlipidemia, GI bleed, parkinsonism who was brought into the hospital from home by his son for increased weakness and a large bowel movement today. Patient's onset that she went to the bathroom this morning with her nurse, and certainly felt weak and her legs gave up. She was supported and put on the toilet by her nurse and apparently she had a large bowel movement. She also had one episode of vomiting In the ED vitals temperature 98.2, pulse 72, respiration 12, blood pressure 129/ 62, saturating 96% on room air. Pertinent labs showed creatinine of 1(baseline 1.2), negative troponins, normal electrolytes. Chest x-ray: Chronic changes with hiatal hernia and minimal atelectasis. No consolidation. Head CT: Negative. Abdomen and pelvis CT showed moderate to large hiatal hernia. 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 Pancolitic diverticulosis without diverticulitis. 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 Surgery Dr. Correa reviewed the CAT scan and felt as there was no evidence of volvulus , no need of any urgent surgical intervention. Patient was admitted to general medical floor and following issues were addressed * Vomiting and diarrhea with CAT scan evidence of questionable partial mesenteroaxial volvulus She was seen by surgery and conservative management was recommended. Patient was placed on gentle hydration and later on. Meal swallow was done and patient was cleared for pured and nectar thickened liquid. * Failure to thrive - weakness and deconditioning Physical therapy was consulted and patient will go to short-term rehabilitation to regain her strength * Hypertension and hyperlipidemia We continued her home medications * Parkinsonism We continued her home medications * Dysphagia Patient was cleared for nectar thickened liquid and pured diet Complications: None Allergies: Coded Allergies: benzethonium chloride (Severe, RASH 03/28/16) Significant Procedures: SERVICE DATE: 03/29/16-1510 EXAM TYPE: RAD - XRY-MODIFIED BARIUM SWALLOW EXAMINATION: XR MODIFIED BARIUM SWALLOW CLINICAL INFORMATION: Aspiration risk COMPARISON: 09/20/2014 TECHNIQUE: Videotaped real-time fluoroscopic evaluation of the patient's swallow was performed in conjunction with speech therapy through the administration of various textured food and barium, including puree, honey, and nectar consistencies. Patient was in a left seated lateral position. FINDINGS: The oropharyngeal phase of swallowing was intermittently delayed throughout the exam, with lingual pumping noted. Several swallows of each consistency were performed. With puree consistency, there were episodes of premature spillage into the vallecula; no penetration or aspiration was seen. With honey thick consistency, there were multiple episodes of premature spillage into the vallecula and a single instance of penetration which did not elicit a spontaneous cough. With nectar consistency, premature spillage was observed into the vallecula and piriform sinuses to varying degrees throughout the swallows; one episode of penetration was observed which did not elicit a spontaneous cough. No patrice aspiration was seen during the exam. IMPRESSION: Single episodes of penetration observed with honey thick and nectar consistencies. No aspiration observed. 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 Discharge Disposition: home health services Discharge Instructions General Discharge Information Code Status: Full Code Patient's Diet: Pure and nectar thickened liquid Patient's Activity: As tolerated with assistance Follow-Up Instructions/Appts: Please follow-up with your primary care physician in one week of discharge follow-up with surgery in 1-2 weeks of discharge Medications at Discharge Discharge Medications: Continue taking these medications: Citalopram Hydrobromide (Citalopram HBr) 20 MG TABLET 1 Tablet ORAL DAILY Qty = 90 Comments: Last Taken: 04/01/16 Time: 1052 Losartan Potassium (Losartan Potassium) 25 MG TABLET 1 Tablet ORAL DAILY Qty = 30 Comments: Last Taken: 04/01/16 Time: 1052 Oxycodone HCl/Acetaminophen (Oxycodone-Acetaminophen 5-325) 5 MG-325 MG TABLET 1 Tablet ORAL 2 x Daily as needed Qty = 60 Comments: NOT GIVEN IN HOSPITAL Calcium Carbonate/Vitamin D3 (Caltrate 600 + D Tablet) 600 MG-800 TABLET 1 Tablet ORAL DAILY Comments: NOT GIVEN IN HOSPITAL Albuterol Sulfate (Proair Hfa) 90 MCG HFA.AER.AD 2 Puff Inhale through mouth EVERY 4-6 HOURS NEEDED as needed for BREATHING Qty = 9 Comments: NOT GIVEN IN HOSPITAL Carbidopa/Levodopa (Carbidopa-Levodopa 25-250 Tab) 25 MG-250 MG TABLET 2 Tablet ORAL DAILY Qty = 135 Comments: Last Taken: 04/01/16 Time: 1052 Start taking the following new medications: Ranitidine HCl (Zantac) 300 MG TABLET 1 Tablet ORAL Every night Qty = 30 No Refills Comments: NOT GIVEN IN HOSPITAL Copies To: KAR ISLAS MD Attending Review Statement Documenting Attending: KAR ISLAS MD
--- NOTE | 2016-03-31 10:44 | Patient Discharge Instructions ---
Discharge Instructions General Discharge Information You were seen/treated for: Weakness Special Instructions: His follow-up with your primary care physician in one week of discharge These follow-up with surgery in 1-2 weeks of discharge Your prilosec has been changed to zantac. Please stop taking prilosec or omeprazole as it cannot be crushed. Diet Additional DIET Information: Pure And nectar thickened liquid Activity Additional ACTIVITY Info: Tolerated with assistance Acute Coronary Syndrome Inclusion Criteria At DC or during hospital stay patient has or had the following: ACS DIAGNOSIS No Discharge Core Measures Meds if any: Prescribed or Continued at Discharge Meds if any: NOT Prescribed or Continued at Discharge Congestive Heart Failure Inclusion Criteria At DC or during hospital stay patient has or had the following: CHF DIAGNOSIS No Discharge Core Measures Meds if any: Prescribed or Continued at Discharge Meds if any: NOT Prescribed or Continued at Discharge Cerebrovascular accident Inclusion Criteria At DC or during hospital stay patient has or had the following: CVA/TIA Diagnosis No Discharge Core Measures Meds if any: Prescribed or Continued at Discharge Meds if any: NOT Prescribed or Continued at Discharge Venous thromboembolism Inclusion Criteria VTE Diagnosis No VTE Type NONE VTE Confirmed by (Test) NONE Discharge Core Measures - Per Current guidelines, there needs to be overlap - treatment for the first 5 days of Warfarin therapy. - If discharged on Warfarin prior to 5 days of - overlap therapy, the patient will need to be - assessed for post discharge needs including - *Post discharge parental anticoagulation - *Warfarin and/or parental anticoagulation education - *Follow up date to check INR post discharge At least 5 days overlap therapy as Inpatient No Meds if any: Prescribed or Continued at Discharge Note: Overlap Therapy is Warfarin and Anticoagulant Meds if any: NOT Prescribed or Continued at Discharge
[2016-03-31 16:35] VITALS: BP 128/70
--- NOTE | 2016-03-31 17:04 | PN- Att Addend ---
Attending Addendum Attending Brief Note Mrs. Jerome continues to tolerate by mouth intake. Her vital signs, physical exam, and laboratory values are acceptable. We anticipate discharge in the a.m.
[2016-04-01 00:43] VITALS: BP 142/78
[2016-04-01 08:18] VITALS: BP 130/74
--- NOTE | 2016-04-01 08:22 | PN- Housestaff ---
Subjective Follow-up For: deconditioning Gi symptoms Subjective: pt has been doing well overnight. had no complains today. stable for discharge. has 24 hr home care at home, family would like to bring her home rather than going to [facility]. Dr. Sousa aware and agreed about the change of plan (initially thought to be discharged for rehab). As prilosec cannot be crushed, changed it to zantac. Review of Systems Constitutional: Reports: see HPI. Denies: chills, fever. EENTM: Denies: visual changes. Cardiovascular: Denies: chest pain, palpitations. Respiratory: Denies: cough, short of breath. Gastrointestinal: Denies: abdominal pain, bloating, constipation, diarrhea, nausea, vomiting. Objective Last 24 Hrs of Vital Signs/I&O Vital Signs Date Time Temp Pulse Resp B/P Pulse O2 O2 Flow FiO2 Ox Delivery Rate 04/01 1057 72 160/72 04/01 0818 98.1 59 20 130/74 94 Room Air 04/01 0043 97.8 72 20 142/78 93 03/31 1635 98.1 70 20 128/70 94 Intake & Output 04/01 1600 04/01 0800 04/01 0000 Intake Total 0 500 Output Total Balance 0 500 Intake, IV 0 Intake, Oral 0 500 Number 0 Bowel Movements Physical Exam General Appearance: Alert, Cooperative, No Acute Distress Skin: No Significant Lesion HEENT: Atraumatic, PERRLA Neck: Supple Cardiovascular: Regular Rate, Normal S1, Normal S2, No Murmurs, Gallops, Rubs Lungs: Clear to Auscultation, Normal Air Movement Abdomen: Normal Bowel Sounds, Soft, No Tenderness Neurological: very soft spoken but responded appropriately to questions and commands Extremities: No Edema Current Medications: Current Medications Sig/Song Start time Last Medication Dose Route Stop Time Status Admin Acetaminophen 325 MG Q6P PRN 03/28 2100 AC 03/30 PO 2214 Albuterol Sulfate 2 PUF Q4-6 PRN PRN 03/28 2115 AC INH Carbidopa/Levodopa 2 TAB DAILY 03/29 1000 AC 04/01 PO 1052 Citalopram 20 MG DAILY 03/29 1000 AC 04/01 Hydrobromide PO 1052 Famotidine 20 MG DAILY 04/01 1000 AC PO Heparin Sodium 5,000 UNIT Q8 03/28 2200 AC 01/02 (Porcine) SC 0741 Lactulose 20 GM TID 04/01 1030 CAN PO Losartan Potassium 25 MG DAILY 03/29 1000 AC 04/01 PO 1057 Nystatin 1 [place] TID 03/30 1019 AC 04/01 TOP 1058 Omeprazole 20 MG DAILY AC 03/29 0700 DC 04/01 PO 0808 Ondansetron HCl 4 MG Q6P PRN 03/28 2200 AC IV Vitamin A/Vitamin D 1 [place] BID 03/30 0350 AC 04/01 TOP 1058 Zinc Oxide 1 [place] BID 03/30 0350 AC 04/01 TOP 1058 Assessment/Plan Assessment: 85-year-old minimally verbal female at baseline with past medical history of hypertension, hyperlipidemia, GI bleed, parkinsonism, presenting with increased weakness and deconditioning. 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 * MBS done and recommended puree/nectar. * IV Zofran PRN for nausea * Surgery was consulted and recommended conservative measures - no need of urgent surgical intervention as no evidence of volvulus on CAT scan and benign abdominal examination * Continue Sinemet for parkinsonism * Continue losartan for hypertension * Subcutaneous heparin for DVT prophylaxis * Full code Problem List: 1. Dehydration 2. Parkinson disease 3. Vomiting Pain Ratin Pain Location: none Pain Goal: Pain 4 or less Pain Plan: mild pp Tomorrow's Labs & Rationales: none DVT/Prophylaxis: mechanical, pharmacological
[2016-04-01] MEDS ORDERED: ZANTAC300 MG PO (08:46)
--- NOTE | 2016-04-01 10:05 | PN- Att Addend ---
Attending Addendum Attending Brief Note attending note. Patient is comfortable awake no change in her condition. Afebrile Vital signs are stable S1-S2 is normal Lungs are clear Abdomen is soft nontender bowel sounds are present. Patient is deconditioned for risk patient is to be discharged [facility] for [facility] and physical therapy.
[2016-04-01 10:57] VITALS: BP 160/72
== END 2016-04-01 15:48 | disposition home health service (06) | DRG 948 ==
LOC: ERH 14:16 → ERHI 19:25 → 2NB 19:25
PROVIDERS: Emergency Medicine; Student in an Organized Health Care Education/Training Program; ADMIT Internal Medicine
DX: R53.1 Weakness (principal); G20 Parkinson's disease; F02.80 Dementia in other diseases classified elsewhere, unspecified severity, without behavioral disturbance, psychotic disturbance, mood disturbance, and anxiety; K44.9 Diaphragmatic hernia without obstruction or gangrene; R11.2 Nausea with vomiting, unspecified; R11.11 Vomiting without nausea; R19.7 Diarrhea, unspecified
CPT/HCPCS: 2NBP; 36415; 74176; 74230; 82436; 93005; 93010; 96360; 96361; 97001-GP; 97110-GO; 97112-GO; 97530-GO; J1644; J7042

== ENCOUNTER 2017-04-03 23:17 | Inpatient (IN) | payer OTHER, MEDICARE ==
[~2017-04-03] VITALS: Ht 142.2 cm; Wt 44.9 kg
[~2017-04-03 23:17] MED LIST changes: +CALTRATE 600 +1 EACH PO; +CARBIDOPA-LEVO1 EAC8 PO; +CITALOPRAM HBR20 MG PO; +LOSARTAN POTASS25 M1 PO; +OMEPRAZOLE20 M2 PO; +OXYCODONE-ACET1 EACH PO; +PROAIR HFA8.5 GM INH; +ZANTAC300 MG PO
--- NOTE | 2017-04-04 00:35 | ED AMS/SEIZURE/WEAK/DIZZY ---
See Addendum History of Present Illness General Chief Complaint: General Adult Stated Complaint: PER SON,"UM RESPIRATORY" Source: family Exam Limitations: unable to give history, clinical condition Vital Signs & Intake/Output Vital Signs & Intake/Output Vital Signs Date Time Temp Pulse Resp B/P B/P Pulse O2 O2 Flow FiO2 Mean Ox Delivery Rate 04/04 0253 98.3 103 24 102/59 95 Venti Mask 50% 04/04 0157 104 26 95/51 90 Venti Mask 50% 04/04 0040 89 Venti Mask 50% 04/04 0012 30 88 Nasal 5.0L Cannula 04/04 0000 122 30 82/40 78 Room Air Room Air Allergies Coded Allergies: benzethonium chloride (Severe, RASH 04/03/17) Reconcile Medications Albuterol Sulfate (Proair Hfa) 90 MCG HFA.AER.AD 2 PUF INH Q4-6 PRN PRN BREATHING (Reported) Calcium Carbonate/Vitamin D3 (Caltrate 600 + D Tablet) 600 MG-800 TABLET 1 TAB PO DAILY SUPPLEMENT (Reported) Carbidopa/Levodopa (Carbidopa-Levodopa 25-250 Tab) 25 MG-250 MG TABLET 2 TAB PO DAILY MEMORY (Reported) Citalopram Hydrobromide (Citalopram HBr) 20 MG TABLET 1 TAB PO DAILY DEPRESSION (Reported) Losartan Potassium 25 MG TABLET 1 TAB PO DAILY HTN (Reported) Oxycodone HCl/Acetaminophen (Oxycodone-Acetaminophen 5-325) 5 MG-325 MG TABLET 1 TAB PO BIDP PAIN (Reported) Ranitidine HCl (Zantac) 300 MG TABLET 1 TAB PO QPM GERD Triage Note: PT TO TRIAGE WITH FAMILY FOR COUGH AND CONGESTION FOR 1 MONTH. FAMILY STATES SHE WAS BROUGHT IN TONIGHT BECAUSE SHE HAS BEEN BREATHING HARDER. RR 30 AND LABORED, SKIN COLD, COUGH IS WET AND NONPRODUCTIVE. PT IS HYPOENSIVE. DR HINOJOSA MADE AWARE Triage Nurses Notes Reviewed? yes HPI: Patient presents for evaluation of worsening weakness and lethargy over the past few days. Although there has been no fever the patient has had "gurgling respirations". Past History Travel History Traveled to [place] past 21 day No Medical History Any Pertinent Medical History? see below for history Neurological: Parkinson's disease, "THORAZINE SHUFFLE" ? 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 No Review of Systems Review of Systems Constitutional: Reports: no symptoms, see HPI. Comments pt unable to provide ROS Physical Exam Physical Exam General Appearance: see below Comments: Physical examination Limited as the patient cannot cooperate with exam Gen.: Well-nourished, well-developed, mild respiratory distress. Not interactive. Head: Normocephalic, atraumatic. Eyes: Normal inspection bilaterally Ears: Normal inspection bilaterally Nose: Normal inspection Throat/mouth : Dry mucosa Neck: Supple, full range of motion, no goiter Heart: Rapid Regular rate and rhythm, no murmurs rubs or gallops Lungs: Clear to auscultation bilaterally with normal air entry Chest: Nontender, poor excursion Back: Normal range of motion, kyphosis present Abdomen: Soft, nontender, nondistended, normal bowel sounds Extremities: Normal range of motion grossly, equal radial pulses, no cyanosis clubbing or edema Neurologic: Cranial nerves grossly intact, unable to assess speech Skin: warm and dry Psychiatric: Unable to assess Core Measures ACS in differential dx? No CVA/TIA Diagnosis No Sepsis Present: Yes Sepsis Focused Exam Completed? Yes Progress Differential Diagnosis: anemia, dehydration, electrolyte imbalance, hypoglycemia , hypoxia, pneumonia, sepsis, UTI/pyelo Plan of Care: Orders Procedure Date/time Status CBC WITHOUT DIFFERENTIAL 04/05 599 Active LACTIC ACID 04/04 07 Active TRC EVALUATION (GEN) 04/04 347 Active OXYGEN SETUP (GEN) 04/04 347 Active Pathway - chart 04/04 347 Active House Staff 04/04 347 Active Patient Data 04/04 347 Active Code Status 04/04 347 Active LACTIC ACID 01/05 0347 Active Patient Data 01/05 0320 Active ARTERIAL BLOOD GAS (GEN) 04/04 0208 Complete Admit to inpatient 04/04 207 Active Telemetry/Director Of Customer Acquisition 04/04 0148 Active BLOOD CULTURE 04/04 46 Active URINALYSIS 04/04 46 Active THYROID STIMULATING HORMONE 04/04 46 Complete TROPONIN LEVEL 04/04 46 Complete LACTIC ACID 04/04 46 Complete COMPREHENSIVE METABOLIC PANEL 04/04 46 Complete CBC WITHOUT DIFFERENTIAL 04/04 46 Complete EKG 04/04 46 Active VTE Mechanical Prophylaxis 04/04 UNK Active Current Medications Sig/Song Start time Last Medication Dose Stop Time Status Admin Heparin Sodium 5,000 UNIT Q8 04/04 06 UNVr (Porcine) Sodium Chloride 1,000 ML BOLUS ONE 04/04 040 UNVr (Normal Saline 0.9%) 04/04 0459 Sodium Chloride 1,000 ML .Q10H 04/04 0345 UNVr (Normal Saline 0.9%) 04/04 2344 Laboratory Tests 04/04/17 0235: pH 7.45, pCO2 33 L, pO2 63 L, HCO3 22, ABG O2 Sat (Measured) 89.0 L, P-50 ( Temp Corrected) N, Carboxyhemoglobin 0.3 L, O2 Concentration % .55, O2 Delivery Method V/M, Phlebotomy Draw Site RIGHT RADIAL 04/04/17 0100: Anion Gap 20 H, Estimated GFR 28 L, BUN/Creatinine Ratio 23.5, Glucose 68, Lactic Acid 7.5 H, Calcium 9.6, Total Bilirubin 0.7, AST 49 H, ALT 20, Alkaline Phosphatase 113, Troponin I 0.42 *H, Total Protein 7.3, Albumin 3.2 L, Globulin 4.1, Albumin/Globulin Ratio 0.8 L, TSH 1.660, CBC w Diff MAN DIFF ORDERED, RBC 4.75, MCV 85.3, MCH 27.8, RDW 14.8 H, MPV 9.7, Gran % 96.5 H, Lymphocytes % 3.0 L, Monocytes % 0.4 L, Eosinophils % 0, Basophils % 0.1, Absolute Granulocytes 35.7 H, Segmented Neutrophils 71, Band Neutrophils 27 H, Absolute Lymphocytes 1.1 L, Lymphocytes 2 L, Absolute Monocytes 0.2, Absolute Eosinophils 0, Absolute Basophils 0, Platelet Estimate INCREASED, Polychromasia 1+, Hypochromic-Microcytic 1+, Poikilocytosis 1+, Ovalocytes 1+, PUBS MCHC 32.6 L, Fld Total RBCs Counted 100 Microbiology 04/04 128 BLOOD: Blood Culture - RECD 04/04 46 BLOOD: Blood Culture - ORD CXR Impression: PATIENT: LINDSAY BROOKS PRESENT AGE: 86 PATIENT ACCOUNT NO: [id number] : [birth year] LOCATION: [facility] ORDERING PHYSICIAN: Yann Hinojosa MD SERVICE DATE: 04/04/17 EXAM TYPE: RAD - XRY-PORTABLE CHEST XRAY EXAMINATION: XR PORTABLE CHEST CLINICAL INFORMATION: Generalized weakness. COMPARISON: Prior chest radiographs most recently 03/28/2016. Chest CT dated 09/23/2014. TECHNIQUE: Portable frontal view of the chest was obtained. FINDINGS: There is a redemonstrated large hiatal hernia producing lucency over the left lateral cardiac silhouette. There are bilateral perihilar opacities which are increased with comparison to the prior chest radiograph. No pleural effusion. No pneumothorax. Cardiomediastinal silhouette is stable. No acute osseous abnormalities. Right shoulder arthroplasty hardware noted. Degenerative changes in the left shoulder. IMPRESSION: 1. Bilateral perihilar opacities which are increased from the prior chest radiograph. Suspect pneumonia. 2. Redemonstrated large hiatal hernia. DICTATED BY: Oscar Tran MD DATE/TIME DICTATED:04/04/17107 BALANCE WEIGHER:AASHISH DATE/TIME TRANSCRIBED:107 CONFIDENTIAL, DO NOT COPY WITHOUT APPROPRIATE AUTHORIZATION. < Electronically signed in Other Vendor System> SIGNED BY: Oscar Tran MD 04/04/17 0115 Initial ED EKG: sinus tachycardia, one pvc, poor r wave prog Prior EKG: changed (nl rate and no pvc on prior) Comments: 04/04/2017 1:20:30 AM patient's heart rate has improved and oxygen saturations are 91-92%. 04/04/2017 2:04:12 AM I have updated Lindsay and her family on test results. Clinically she appears more alert but is not yet interactive. 04/04/2017 2:08:24 AM patient's case discussed with Dr. Pearson. ED Sepsis Exam Date of Focused Sepsis Exam: 01/05/18 Time of Focused Sepsis Exam: 0401 Sepsis Cardiac Exam: Tachycardia (improved) Sepsis Resp Exam: Ronchi (bilaterally) Sepsis Cap Refill Exam: <2 Sec Sepsis Peripheral Pulse Exam: Normal Sepsis Peripheral Pulse Location: Radial Sepsis Skin Color Exam: Normal for Ethnicity Skin Temp/Moisture Exam: Warm/Dry Departure Departure Disposition: STILL A PATIENT Condition: Stable Clinical Impression Primary Impression: Sepsis Secondary Impressions: WILLIS (acute kidney injury), Anemia, Pneumonia Referrals: Handy Sousa MD (PCP/Family) Departure Forms: Customer Survey General Discharge Information Admission Note Spoke With: Arley Pearson MD Documentation of Exam: Documentation of any treatments & extenuating circumstances including Concerns Regarding Discharge (functional status, medication knowledge or non-compliance, living conditions, etc.) that warrant an admission rather than observation: Patient presents with worsening weakness and lethargy. I feel she is in septic shock secondary to pneumonia with an elevated white blood cell count hypoxia and hypotension. Although she appears to be improving she is still critically ill and requires ICU level care. Vital signs and intake and output should be monitored closely. Culture results should be followed and treated accordingly. Cardiology consultation should be considered given the patient's elevated troponin. If patient's overall clinical condition does not improve over the next 24-48 hours then pulmonary and/or infectious disease consultations should be considered. Patient should be hydrated and renal functions followed, if renal functions do not improve then nephrology consultation should be considered. Given the patient's advanced age and multiple medical comorbidities and overall debilitated state I feel she will require a multiple day hospitalization. Her recovery will likely be prolonged and complicated. Critical Care Note Critical Care Note Critical Care Time: 30-74 min
[2017-04-04 01:06] LABS: ABSOLUTE BASOPHIL COUNT 0 /CUMM (0.0-0.2); ABSOLUTE EOSINOPHIL COUNT 0 /CUMM (0.0-0.7); ABSOLUTE GRANULOCYTE CT 35.7 /CUMM (1.4-6.5); ABSOLUTE LYMPH COUNT 1.1 /CUMM (1.2-3.4); ABSOLUTE MONOCYTE COUNT 0.2 /CUMM (0.10-0.60); BASOPHIL % 0.1 % (0.0-2.0); EOSINOPHIL % 0 % (0-5); HEMATOCRIT 40.5 % (37-47); MEAN CORPUSCULAR HGB 27.8 PG (27.0-31.0); MEAN CORPUSCULAR HGB CONC 32.6 G/DL (33.0-37.0); MEAN CORPUSCULAR VOLUME 85.3 FL (81.0-99.0); MEAN PLATELET VOLUME 9.7 FL (7.4-10.4); PLATELET COUNT 456 /CUMM (130-400); RBC DISTRIBUTION WIDTH 14.8 % (11.5-14.5); RED BLOOD CELL CT 4.75 /CUMM (4.20-5.40)
--- NOTE | 2017-04-04 01:15 | RADIOLOGY REPORT ---
EXAMINATION: XR PORTABLE CHEST CLINICAL INFORMATION: Generalized weakness. COMPARISON: Prior chest radiographs most recently 03/28/2016. Chest CT dated 09/23/2014. TECHNIQUE: Portable frontal view of the chest was obtained. FINDINGS: There is a redemonstrated large hiatal hernia producing lucency over the left lateral cardiac silhouette. There are bilateral perihilar opacities which are increased with comparison to the prior chest radiograph. No pleural effusion. No pneumothorax. Cardiomediastinal silhouette is stable. No acute osseous abnormalities. Right shoulder arthroplasty hardware noted. Degenerative changes in the left shoulder. IMPRESSION: 1. Bilateral perihilar opacities which are increased from the prior chest radiograph. Suspect pneumonia. 2. Redemonstrated large hiatal hernia.
[2017-04-04 01:23] LABS: GRANULOCYTE % 96.5 % (42.2-75.2)
--- NOTE | 2017-04-04 03:41 | History & Physical ---
TracyvillaCarri 04/04/17 0339: General Information and HPI MD Statement: I have seen and personally examined LINDSAY BROOKS and documented this H&P. The patient is a 86 year old F who presented with a patient stated chief complaint of [increasing lethargy and shortness of breath]. Source of Information: family Exam Limitations: unable to give history, clinical condition History of Present Illness: Patient is an 86-year-old woman lives w/ her son, has advanced Parkinson's, nonverbal at her baseline was brought in by his son for increasing lethargy and difficulty breathing. The history was obtained from the son over the phone. According to patient's son her lungs sounds to be more " congested and noisy". Over the stretch of months patient became more lethargic and weak on a daily basis. She had daily aid, who helps her with limited ambulation using walker. According to son her exercise tolerance has diminished over the past months. At her baseline she has dysphagia and very poor oral intake and for the past 3 or 4 days she has not been eating and drinking appropriately. Her eights did not report any change in urine, stool, episode of fever or shaking chills or nausea vomiting and diarrhea , chest pain, palpitation. Today, aid check her oxygen saturation which was 88% in room air (normally 92-94%) and according to son patient was more lethargic than other days. Of note, presented in the past medical history of dysphagia, hypertension, hyperlipidemia and COPD. According to son she has had no sick contacts and no travel. Allergies/Medications Allergies: Coded Allergies: benzethonium chloride (Severe, RASH 04/03/17) Home Med list Albuterol Sulfate (Proair Hfa) 90 MCG HFA.AER.AD 2 PUF INH Q4-6 PRN PRN BREATHING (Reported) Calcium Carbonate/Vitamin D3 (Caltrate 600 + D Tablet) 600 MG-800 TABLET 1 TAB PO DAILY SUPPLEMENT (Reported) Carbidopa/Levodopa (Carbidopa-Levodopa 25-250 Tab) 25 MG-250 MG TABLET 2 TAB PO DAILY MEMORY (Reported) Citalopram Hydrobromide (Citalopram HBr) 20 MG TABLET 1 TAB PO DAILY DEPRESSION (Reported) Losartan Potassium 25 MG TABLET 1 TAB PO DAILY HTN (Reported) Oxycodone HCl/Acetaminophen (Oxycodone-Acetaminophen 5-325) 5 MG-325 MG TABLET 1 TAB PO BIDP PAIN (Reported) Ranitidine HCl (Zantac) 300 MG TABLET 1 TAB PO QPM GERD Compliance With Home Meds: GOOD Past History Travel History Traveled to [place] past 21 day No Medical History Neurological: Parkinson's disease, "THORAZINE SHUFFLE" ? EENT: cataracts, hearing loss Cardiovascular: hypertension, hyperlipidemia, myocardial infarction Respiratory: pneumonia Gastrointestinal: GERD, GIB Hepatic: NONE Renal: UTI Musculoskeletal: R SHOULDER REPL R KNEE REPL Psychiatric: anxiety Endocrine: NONE Blood Disorders: NONE Cancer(s): NONE DISPLAY MANAGER/Reproductive: NONE History of MRSA: No History of VRE: Yes History of CDIFF: No Pneumonia Vaccine: 12/29/06 Influenza Vaccine: 01/30/16 Surgical History Surgical History: knee replacement, SHOULDER REPLACEMENT Past Family/Social History Family History Relations & Conditions if any Relation not specified for: *No pertinent family history Psychosocial History Services at Home: Home Health Aide, Nursing ETOH Use: denies use Illicit Drug Use: denies illicit drug use Functional Ability ADLs Needs Assist: dressing, eating, toileting, bathing. Ambulation: walker IADLs Independent: shopping, housework, finances, food prep, telephone, transportation , medication admin. Review of Systems Review of Systems Constitutional: Reports: see HPI. Exam & Diagnostic Data Last 24 Hrs of Vital Signs/I&O Vital Signs Date Time Temp Pulse Resp B/P B/P Pulse O2 O2 Flow FiO2 Mean Ox Delivery Rate 04/04 0507 98.5 109 33 94/54 94 Venti Mask 55% 04/04 0402 98.4 100 18 102/56 99 Venti Mask 55% 04/04 0253 98.3 103 24 102/59 95 Venti Mask 50% 04/04 0157 104 26 95/51 90 Venti Mask 50% 04/04 0040 89 Venti Mask 50% 04/04 0012 30 88 Nasal 5.0L Cannula 04/04 0000 122 30 82/40 78 Room Air Room Air Intake & Output 04/04 0800 04/04 0000 04/03 1600 Intake Total 1750 Output Total Balance 1750 Intake, IV 1750 Intake, Oral Weight Measurement Method Physical Exam General Appearance Moderate Distress Skin No Breakdown, No Significant Lesion Skin Temp/Moisture Exam: Cool/Dry Sepsis Skin Exam (color): Pale HEENT Atraumatic, M membranes are dry Neck No JVD Lymphatic Axillary nl, Cervical nl Cardiovascular Normal S1, Normal S2 Lungs rhonchorous, rule out diffuse crackles Abdomen Soft Neurological unable to examine Extremities weak peripheral pulses, cold and dry extremities Sepsis Peripheral Pulse Location: Dorsalis Pedis Sepsis Peripheral Pulse Exam: Weak Sepsis Cap Refill Exam: >2 sec Last 24 Hrs of Labs/Jean: Laboratory Tests 04/04/17 0422: Lactic Acid 3.6 H 04/04/17 0235: pH 7.45, pCO2 33 L, pO2 63 L, HCO3 22, ABG O2 Sat (Measured) 89.0 L, P-50 ( Temp Corrected) N, Carboxyhemoglobin 0.3 L, O2 Concentration % .55, O2 Delivery Method V/M, Phlebotomy Draw Site RIGHT RADIAL 04/04/17 0100: Anion Gap 20 H, Estimated GFR 28 L, BUN/Creatinine Ratio 23.5, Glucose 68, Lactic Acid 7.5 H, Calcium 9.6, Total Bilirubin 0.7, AST 49 H, ALT 20, Alkaline Phosphatase 113, Troponin I 0.42 *H, Total Protein 7.3, Albumin 3.2 L, Globulin 4.1, Albumin/Globulin Ratio 0.8 L, TSH 1.660, CBC w Diff MAN DIFF ORDERED, RBC 4.75, MCV 85.3, MCH 27.8, RDW 14.8 H, MPV 9.7, Gran % 96.5 H, Lymphocytes % 3.0 L, Monocytes % 0.4 L, Eosinophils % 0, Basophils % 0.1, Absolute Granulocytes 35.7 H, Segmented Neutrophils 71, Band Neutrophils 27 H, Absolute Lymphocytes 1.1 L, Lymphocytes 2 L, Absolute Monocytes 0.2, Absolute Eosinophils 0, Absolute Basophils 0, Platelet Estimate INCREASED, Polychromasia 1+, Hypochromic-Microcytic 1+, Poikilocytosis 1+, Ovalocytes 1+, PUBS MCHC 32.6 L, Fld Total RBCs Counted 100 Microbiology 04/04 436 NASOPHARYN: Influenza Virus A & B Rapid Smear - COMP 04/04 431 URINE ROUT: Legionella Antigen - ORD 04/04 431 URINE ROUT: Streptococcus pneumoniae Antigen (M - ORD 04/04 431 LOWER RESP: Respiratory Culture - ORD 04/04 431 LOWER RESP: Gram Stain - ORD 04/04 012 BLOOD: Blood Culture - RECD 04/04 004 BLOOD: Blood Culture - ORD Diagnostic Data EKG Results Normal sinus rate and rhythm No acute ST-T segment change CXR Results 1. Bilateral perihilar opacities which are increased from the prior chest radiograph. Suspect pneumonia. 2. Redemonstrated large hiatal hernia. Assessment/Plan Assessment: This is an 86-year-old woman with very poor performance and failure to thrive and multiple comorbidities was admitted for sepsis. Pertinent data Chest x-ray: Suggestive of new bibasilar opacities and significant hiatal hernia Blood work: WBC 37,000 with 27 band; H&H: 13/40; platelet count of 456 Sodium 145 potassium 4.5 chloride 104 bicarbonate 21 BUN 40 and creatinine 1.7; lactic acid 7.5>>3.6 Troponin 0.42 7.45/33/63/ 50% Ventimask AG 21; alb 3.2; corrected AG 23; DD:11 List of active problems #1 SEPSIS and acute hypoxic respiratory failure secondary to mostly aspiration pneumonia vs community-acquired pneumonia (??? ASP pneumonia lethargy; and hital hernia). According 2017 [facility] guidelines, this patient fits in the criteria for sepsis. #2 acute renal failure: (Elevated BUN/creatinine ratio) was possibly due to poor oral intake and dehydration (if did not resolve with proper hydration there is a possibility of ATN in the setting of hypotension) #3 Type II NJ ( secondary to persistent tachycardia and hypoxia) Without concomitant EKG changes: Trending troponin and EKG every 6 hours no need for heparinization and loading dose of aspirin and clopid. #4 AGMA secondary to lactic acidosis (primary), metabolic alkalosis (contractile 2 dehydration) and respiratory alkalosis (secondary to tachypnea) #5 failure to thrive poor oral intake and dysphagia #6 significant hiatal hernia and increased risk of aspiration #7 PT/OT Plan * Admit to ICU * Continue IV hydration 30 mL per KG; maintaining blood pressure MEP more than 65 mmHg * Hold her by mouth antihypertensive medication (losartan 25 mg daily) * Trending lactic acid; expecting>= 20% decrease every 2 hours(marker of proper hydration) * Insert Canales for strict ins and outs * Keep nothing by mouth; pending swallow eval * Sputum culture, rapid flu test, Streptococcus and Legionella urine antigen, blood and urine culture * start IV Unasyn and IV azithromycin pending above; if patient did not improved , consider risk of aspiration and broaden the coverage to Unasyn azithromycin * Trending troponin every 6h and consult cardiology in the a.m. * Continue IV hydration for lactic acidosis and WILLIS * TRC/ Neb * PT/OT and swallow eval in the a.m. Patient's son is her power of state's attorney His phone #[phone] FC/ central line heprain [id number] U SQ h8 As Ranked By This Provider Problem List: 1. Fracture of rib 2. Osteoporosis 3. DVT prophylaxis 4. Full code status 5. Pneumonia 6. Sepsis 7. WILILS (acute kidney injury) 8. Hypoxia 9. Dehydration 10. Parkinson disease 11. Sepsis Core Measures/Misc (12/15) Acute Coronary Syndrome ACS Diagnosis: Yes Last Known EF % 65 Congestive Heart Failure Congestive Heart Failure Diagnosis No Cerebrovascular Accident CVA/TIA Diagnosis: No VTE (View Protocol) VTE Risk Factors CHF or Resp Failure No Mechanical VTE Prophylaxis d/t N/A MechProphylax Ordered No VTE Pharm Prophylaxis d/t NA PharmProphylax ordered Sepsis (View protocol) Sepsis Present: Yes Resident Review Statement Resident Statement: examined this patient, discussed with leadership intern, agreed with leadership intern, discussed with family, reviewed EMR data (avail), discussed with nursing , discussed with case mgmt, reviewed images, amended to note Attending MD Review Statement Attending Statement Attending MD Statement: examined this patient, discuss w/resident/PA/COUNTER FORMER, agreed w/resident/PA/COUNTER FORMER, discussed with family, reviewed EMR data (avail), discussed with nursing, discussed with case mgmt, reviewed images, amended to note Arley Pearson 04/04/17 0713: Attending MD Review Statement Attending Statement Attending MD Statement: examined this patient, discuss w/resident/PA/COUNTER FORMER, agreed w/resident/PA/COUNTER FORMER, reviewed EMR data (avail), reviewed images, amended to note Attending Assessment/Plan: CC: Lethargy and weakness PMH: HTN, HLD, Parkinson's disease, history of GI bleed History was obtained from patient's son who suggest that patient's has been weak and lethargic since last 3-4 days, decreased appetite, increased to sleepy and today she was sounded more congested so he sent her to ER. Patient is nonverbal, taken care of home nursing aides. According to patient's son, healthcare aides make her walk with the walker to bathroom and feed her. Otherwise limited Vitals: T max 98.3, pulse 122, heart or 30, blood pressure 82/40, saturating 78% on room air improved to 92% on 50% Ventimask On exam: Alert, does not follow instructions, does not talk, cachectic, lethargic, respiratory discomfort, not cooperative, neck supple, JVD normal, no lymphadenopathy, mucosa dry, neurological examination is limited that patient has markedly increased tone in all extremities, no dependent edema, stage I sacral pressure sore, peripheral pulses feeble and cold extremities, CVS: S1-S2, RRR. RS: Transmitted sounds secondary to gargling probably pulling of secretions , rhonchorous bilaterally basis Abdomen: Soft, scaphoid abdomen, nontender, ND, bowel sounds present. Labs: WBC 37.5, neutrophils 96%, bands 27, hemoglobin 13.2, hematocrit 40.5, platelet 456, sodium 145, potassium 4.5, chloride 104, bicarbonate 21, BUN 40, creatinine 1.7, anion gap 20, glucose 68, calcium 9.6, lactate 7.5, AST 49, AST 20, total bilirubin 0.7, troponin 0.42, AB.45/33/63/22 on 55% Ventimask CXR: 1. Bilateral perihilar opacities which are increased from the prior chest radiograph. Suspect pneumonia. 2. Redemonstrated large hiatal hernia. Assessment and plan 86-year-old female was brought in ER from home after being found very lethargic, weak, gargling respiratory sounds, more sleepy. Patient is nonverbal and does not provide any history. Patient's history was obtain from patient's son on phone. On examination patient is stiff in all muscle groups, does not follow instructions, I doubt if patient walks to the bathroom. she has gurgling sounds as if having pooling of secretions and rhonchi bilaterally. In this situation we suspected aspiration pneumonia, which is confirmed on x-ray. Patient is severely dehydrated on examination tachycardic and hypotensive and responded to fluids but on 50% Ventimask currently she is also found to have significant leukocytosis, significant lactic acidosis, Metabolic acidosis with metabolic alkalosis, acute kidney injury, and elevated troponin. A detailed discussion was done by resident with patient's son about patient's poor prognosis, physical deconditioning and failure to thrive. Patient's son wants all aggressive measures, pressors, chest compressions and intubation if required. Canales catheter shows muddy urine barely any urine output, stage I pressure sore on sacrum. + Pneumonia: Suspect aspiration versus community-acquired + Severe sepsis secondary to pneumonia + Demand ischemia with elevated troponin + Acute kidney injury + Anion gap Metabolic acidosis, metabolic alkalosis, respiratory alkalosis + Physical deconditioning and failure to thrive - Admit to ICU - Continue aggressive hydration bolus for severe sepsis followed by maintenance drip, if blood pressure persistently low patient may require central line and Levophed, keep map above 65 - Canales catheter - Strict I's and O's - Blood cultures, UA urine culture, check influenza - Continue IV Unasyn and azithromycin - Repeat ABG in 4-6 hours from the previous one - Trend lactate - Trend troponin and EKG - Cardiology consult in a.m. - Nothing by mouth and swallow evaluation in a.m. - Hold all her home medications - TRC and nebulizations - Critical care consult - 2-D echocardiogram in a.m. - DVT prophylaxis - Consider CT chest if no symptomatic improvement - Patient is full code TTS 30 min
[2017-04-04 05:07] VITALS: BP 94/54
--- NOTE | 2017-04-04 07:15 | Admission Certification ---
Admission Certification Certification Statement - As attending physician, I certify that at the time of - admission, based on clinical presentation, severity of - symptoms, need for further diagnostic testing and - therapeutic interventions, and risk of adverse outcomes - without in-hospital treatment, in my clinical assessment, - this patient requires an acute hospital stay for a minimum - of two nights or longer. I have also considered psychsocial - factors such as support system, advanced age, financial - issues, cognitive issues, and failed out-patient treatments, - past re-admission history, safety of patient, and lack of - compliance as applicable. Specific rationale supporting this admission is: Severe sepsis probably secondary to pneumonia, failure to thrive
[2017-04-04 08:00] VITALS: BP 90/48
--- NOTE | 2017-04-04 08:03 | Cons- CRCU ---
Fawad Buenrostro 04/04/17 0803: General Information and HPI Consulting Request Date of Consult: 04/04/17 Requested By: Dr. Pearson Reason for Consult: Sepsis 2/2 PNA History of Present Illness: Ms. Jerome is a 86 yo f with a H hypertension, hyperlipidemia, GI bleed, parkinsonism who presented with progressively worsened lethargy and SOB. Patient is nonverbal at baseline. History taken from records and son at bedside. Son reports patient has been active since about a week now. At baseline she uses a walker with assistance. He reports he had her riding an exercise bike 2 weeks ago to keep her active. He has a visiting nurse who comes 9 am to 9 pm. He and his ex- covers at all other times. He reports he has been keeping her hydrated with pedialyte. Her appeptite has been progressively declining. She used to eat three meals a day and she is currently down to two meals a day. Her food is normally chopped up but she has recently been "gurgling" when fed. She has also had a cough for the past month, Son was concerned about a possible infection and decided to bring her to the hospital. He denies vomiting, CP, recent falls, urinary or bowel symptoms. Allergies/Medications Allergies: Coded Allergies: benzethonium chloride (Severe, RASH 04/03/17) Home Med List: Albuterol Sulfate (Proair Hfa) 90 MCG HFA.AER.AD 2 PUF INH Q4-6 PRN PRN BREATHING (Reported) Calcium Carbonate/Vitamin D3 (Caltrate 600 + D Tablet) 600 MG-800 TABLET 1 TAB PO DAILY SUPPLEMENT (Reported) Carbidopa/Levodopa (Carbidopa-Levodopa 25-250 Tab) 25 MG-250 MG TABLET 2 TAB PO DAILY MEMORY (Reported) Citalopram Hydrobromide (Citalopram HBr) 20 MG TABLET 1 TAB PO DAILY DEPRESSION (Reported) Losartan Potassium 25 MG TABLET 1 TAB PO DAILY HTN (Reported) Oxycodone HCl/Acetaminophen (Oxycodone-Acetaminophen 5-325) 5 MG-325 MG TABLET 1 TAB PO BIDP PAIN (Reported) Ranitidine HCl (Zantac) 300 MG TABLET 1 TAB PO QPM GERD Current Medications: Current Medications Sig/Song Start time Last Medication Dose Route Stop Time Status Admin Albuterol Sulfate 3 ML EVERY 4 HRS/AWAKE 04/04 0915 AC 04/04 INH 0904 Albuterol Sulfate 2 PUF Q4-6 PRN PRN 04/04 0430 AC INH Ampicillin Sodium/ 1,500 MG Q12 04/04 1000 AC 04/04 Sulbactam Sodium IV 1043 Sodium Chloride 100 ML Ampicillin Sodium/ 1,500 MG Q6 04/04 0600 DC Sulbactam Sodium IV Sodium Chloride 100 ML Azithromycin 500 MG DAILY 04/04 1000 AC 04/04 Sodium Chloride 250 ML IV 1043 Azithromycin 500 MG ONCE ONE 04/04 0130 DC 04/04 Sodium Chloride 250 ML IV 04/04 0229 0210 Ceftriaxone Sodium 1,000 MG DAILY 04/05 1000 CAN IV Ceftriaxone Sodium 0 .STK-MED ONE 04/04 0208 DC .ROUTE Ceftriaxone Sodium 1,000 MG ONCE ONE 04/04 0130 DC 04/04 IV 04/04 0131 0210 Dextrose 12.5 GM ONCE ONE 04/04 1100 DC 04/04 IV 04/04 1101 1140 Heparin Sodium 5,000 UNIT Q8 04/04 0600 AC 04/04 (Porcine) SC 0545 Magnesium Sulfate 1 GM Q2H 04/04 1100 AC 04/04 Dextrose/Water 100 ML IV 04/04 1459 1140 Potassium Chloride 10 MEQ Q1H 04/04 1100 AC IV 04/04 1201 Potassium Phosphate 15 mMol ONE ONE 04/04 1100 AC Dextrose/Water 250 ML IV 04/04 1504 Sodium Chloride 500 ML BOLUS ONE 04/04 0930 DC 04/04 IV 04/04 1029 0929 Sodium Chloride 500 ML BOLUS ONE 04/04 0700 DC 04/04 IV 04/04 0759 0701 Sodium Chloride 1,000 ML BOLUS ONE 04/04 0400 DC 04/04 IV 04/04 0459 0406 Sodium Chloride 1,000 ML .Q10H 04/04 0345 AC 04/04 IV 04/04 2344 0545 Sodium Chloride 1,000 ML ONCE ONE 04/04 0130 DC 04/04 IV 04/04 0131 0155 Sodium Chloride 500 ML BOLUS ONE 04/04 0045 DC 04/04 IV 04/04 0144 0103 Vancomycin HCl 1,000 MG ONCE ONE 04/04 1000 DC Sodium Chloride 250 ML IV 04/04 1059 Review of Systems Review of Systems Constitutional: Reports: see HPI. Past History Travel History Traveled to [place] past 21 day No Medical History Neurological: Parkinson's disease, "THORAZINE SHUFFLE" ? EENT: cataracts, hearing loss Cardiovascular: hypertension, hyperlipidemia, myocardial infarction Respiratory: pneumonia Gastrointestinal: GERD, GIB Hepatic: NONE Renal: UTI Musculoskeletal: R SHOULDER REPL R KNEE REPL Psychiatric: anxiety Endocrine: NONE Blood Disorders: NONE Cancer(s): NONE HIGH WORKER/Reproductive: NONE Surgical History Surgical History: knee replacement, SHOULDER REPLACEMENT Family History Relations & Conditions If Any: Relation not specified for: *No pertinent family history Psychosocial History Services at Home: Home Health Aide, Nursing Smoking Status: Unknown If Ever Smoked ETOH Use: denies use Illicit Drug Use: denies illicit drug use Functional Ability ADLs Needs Assist: dressing, eating, toileting, bathing. Ambulation: walker IADLs Independent: shopping, housework, finances, food prep, telephone, transportation , medication admin. Exam & Diagnostic Data Last 24 Hrs of Vital Signs/I&O Vital Signs Date Time Temp Pulse Resp B/P B/P Pulse O2 O2 Flow FiO2 Mean Ox Delivery Rate 04/04 1028 94 Non 100% ReBreather 04/04 1022 Non 100% ReBreather 04/04 0507 92 Non 55% ReBreather 04/04 0507 98.5 109 33 94/54 94 Venti Mask 55% 04/04 0402 98.4 100 18 102/56 99 Venti Mask 55% 04/04 0253 98.3 103 24 102/59 95 Venti Mask 50% 04/04 0157 104 26 95/51 90 Venti Mask 50% 04/04 0040 89 Venti Mask 50% 04/04 0012 30 88 Nasal 5.0L Cannula 04/04 0000 122 30 82/40 78 Room Air Room Air Intake & Output 04/04 1600 04/04 0800 04/04 0000 Intake Total 1850 Output Total 0 Balance 1850 Intake, IV 1850 Intake, Oral Number 1 Bowel Movements Output, Urine 0 Patient 98 lb Weight Weight Bed scale Measurement Method Physical Exam General Appearance: thin Head: atraumatic, normal appearance Eyes: Bilateral: normal appearance, PERRL, EOMI. Ears, Nose, Throat: normal pharynx, normal ENT inspection, hearing grossly normal Neck: normal inspection, supple, full range of motion Respiratory: rhonchi Cardiovascular: regular rate/rhythm Gastrointestinal: normal bowel sounds, soft, non-tender Extremities: normal inspection, no edema Last 48 Hrs of Labs/Jean: Laboratory Tests 04/04/17 1000: Sodium Cancelled, Potassium Cancelled, Chloride Cancelled, Carbon Dioxide Cancelled, Anion Gap Cancelled, BUN Cancelled, Creatinine Cancelled, Glucose Cancelled, Calcium Cancelled, Phosphorus Cancelled, Magnesium Cancelled, Total Bilirubin Cancelled, AST Cancelled, ALT Cancelled, Albumin Cancelled 04/04/17 0834: Lactic Acid Cancelled 04/04/17 0824: Anion Gap 10, Estimated GFR 35 L, Glucose 60 L, Lactic Acid 2.3 H, Calcium 7.3 L, Phosphorus 2.9, Magnesium 1.3 L, Total Bilirubin 0.3, AST 41 H, ALT 30 , Troponin I 0.39 *H, Albumin 2.1 L, Prealbumin 6.4 L 04/04/17 0700: Lactic Acid Cancelled 04/04/17 0600: pH 7.43, pCO2 29 L, pO2 60 L, HCO3 19 L, ABG O2 Sat (Measured) 89.0 L, P-50 (Temp Corrected) N, Carboxyhemoglobin 0.3 L, O2 Concentration % .55, O2 Delivery Method V/M, Phlebotomy Draw Site RIGHT RADIAL 04/04/17 0422: Lactic Acid 3.6 H 04/04/17 0235: pH 7.45, pCO2 33 L, pO2 63 L, HCO3 22, ABG O2 Sat (Measured) 89.0 L, P-50 ( Temp Corrected) N, Carboxyhemoglobin 0.3 L, O2 Concentration % .55, O2 Delivery Method V/M, Phlebotomy Draw Site RIGHT RADIAL 04/04/17 0100: Anion Gap 20 H, Estimated GFR 28 L, BUN/Creatinine Ratio 23.5, Glucose 68, Lactic Acid 7.5 H, Calcium 9.6, Total Bilirubin 0.7, AST 49 H, ALT 20, Alkaline Phosphatase 113, Troponin I 0.42 *H, Total Protein 7.3, Albumin 3.2 L, Globulin 4.1, Albumin/Globulin Ratio 0.8 L, TSH 1.660, CBC w Diff MAN DIFF ORDERED, RBC 4.75, MCV 85.3, MCH 27.8, RDW 14.8 H, MPV 9.7, Gran % 96.5 H, Lymphocytes % 3.0 L, Monocytes % 0.4 L, Eosinophils % 0, Basophils % 0.1, Absolute Granulocytes 35.7 H, Segmented Neutrophils 71, Band Neutrophils 27 H, Absolute Lymphocytes 1.1 L, Lymphocytes 2 L, Absolute Monocytes 0.2, Absolute Eosinophils 0, Absolute Basophils 0, Platelet Estimate INCREASED, Polychromasia 1+, Hypochromic-Microcytic 1+, Poikilocytosis 1+, Ovalocytes 1+, PUBS MCHC 32.6 L, Fld Total RBCs Counted 100 Microbiology 04/04 0437 NASOPHARYN: Influenza Virus A & B Rapid Smear - COMP Diagnostic Data CXR Results 04/04/17-46 IMPRESSION: 1. Bilateral perihilar opacities which are increased from the prior chest radiograph. Suspect pneumonia. 2. Redemonstrated large hiatal hernia. Assessment/Plan Impression/Plan: This is an 86-year-old woman with very poor performance and failure to thrive and multiple comorbidities was admitted for sepsis. Sepsis 2/2 PNA On admission CXR demonstrated BLE perihilar opacities suspicious for PNA. Streptococcus urine antigen reported positive * TRC/nebs PRN * Continue oxygen supplementation * Continue IV Unasyn and IV azithromycin * Follow up pancultures and sensitivities Deconditioning * PT/OT WILLIS 2/2 to poor oral intake and dehydration * Continue IV hydration for lactic acidosis and WILLIS Type II LA 2/2 demand ischemia * Cardiology recommendations appreciated * Serial ECG/Trop to r/o ACS History of dysphagia, hiatal hernia * ST for bedside swallow evaluation * hold her by mouth antihypertensive medication Patient's son is her power of civil litigation attorney His phone #[phone] FC/ central line heprain [id number] [id number] [id number] Consult Acknowledgment - Thank you for your consult request. Ayden CEDILLO,Tyrone Carey 04/04/17 0836: Assessment/Plan Other Findings/Comments: I have personally seen and examined the patient and agree with the resident's assessment and plan as detailed above. The patient is an 86-year-old frail, debilitated female who lives at home with her son. She is nonverbal and unable to provide any complaints. She has advanced Parkinson's disease, hypertension, hyperlipidemia, history of LA, history of pneumonia, GERD, history of GI bleed, history of UTI, cataracts and hearing loss. The patient is fully dependent upon home health aids at home as per the chart. The patient was brought in to the emergency department for increasing lethargy and worsening shortness of breath. The patient was found to have increased secretions with chest congestion. Over the past several months, the patient became more lethargic and weak on a daily basis. The patient had previously been using a walker for ambulation but has required more assistance as her weakness has progressed. She has known dysphagia with very poor oral intake, and she is not been eating or drinking appropriately. There is no documented fever. There is no report of shaking chills, nausea, vomiting, diarrhea or chest pain. The patient was noted to have oxygen desaturation and was therefore sent to the ED for further evaluation. In the ED, the patient was found to be very lethargic and hypoxemic requiring a 55% Ventimask to maintain her saturations greater than 92%. On presentation, the patient's blood pressure was 82/40 noting that she responded to IV fluids appropriately and has not required pressors. She was tachycardic with improvement after IV fluid administration as well. The patient's white blood cell count was 37,000 with a lactic acid of 7.5. On admission her temperature was 98.3. Chest x-ray was done that showed bilateral. Hilar opacities increased from prior chest x-ray suspicious for pneumonia. The patient also has a very large hiatal hernia which has been documented in the past as well. ABG showed a pH 7.43, PCO2 29, PO2 60, and a bicarbonate of 19. An influenza swab was negative. Urine and sputum cultures have not yet been sent. The patient was started on IV Unasyn and azithromycin as well as total respiratory care. She was transferred to the ICU noting that once again she is nonverbal and unable to answer any questions. The patient appears in mild respiratory distress and is very rhonchorous on examination. She again appears frail and debilitated. There is no peripheral edema. Her abdomen is benign. Impression: 1. Septic shock secondary to aspiration pneumonia. 2. Recurrent aspiration due to dysphagia due to Parkinson's disease and large hiatal hernia. 3. Metabolic acidosis secondary to sepsis. 4. ARF secondary to prerenal dehydration/poor oral intake. ATN must be considered. 5. Severe malnutrition with poor oral intake. 6. Failure to thrive. 7. EKG changes secondary to possible demand ischemia. Plan: * Check urine for Legionella and strep pneumo. * Continue aggressive IV fluid hydration, for UO > 30 mL per kilo, and to maintain the MAP greater than 65. * Strict I's and O's, monitor urine output closely. * Continue to trend lactic acid levels. * NPO. * Maintain strict aspiration precautions. * Speech therapy evaluation. * Total respiratory care ordered for nasotracheal suctioning, nebulizer treatments and mucociliary clearance. Will need to start the patient on chest PT twice a day with nebs as well (if the patient tolerates). * Maintain saturations greater than 92%. * Can try high flow oxygen if necessary. * Monitor labs every 8 hours today. * Check a prealbumin level with the next set of labs. * Will need to assess the need for possible PEG tube (per staff, refused in the past). * Follow-up cultures. * Continue IV azithromycin and Unasyn. * Give 1 dose of vancomycin today pending culture results. * DT prophylaxis at all times. * The patient is critically ill and has the potential for decompensation. We will need to have a goals of care discussion with the patient's family, noting that she is currently full code. Consult Acknowledgment - Thank you for your consult request. - Thank you for your consult request. - Thank you for your consult request. * The patient is critically ill and has the potential for decompensation. We will need to have a goals of care discussion with the patient's family, noting that she is currently full code. Consult Acknowledgment - Thank you for your consult request.
--- NOTE | 2017-04-04 10:32 | Event Note ---
Event Note Event Note: S:Discussion for goals of care. Supervisor Delivery Department Dr Hensley, spoke to the team for us to contact POA for the team to have a meeting to speak to the POA regarding a goals of care discussion. B: The patient is an 86-year-old frail, debilitated female, who was admitted on 04/04/2017, being managed for Septic Shock Secondary to aspiration pnemonia. A/R: This provider made multiple attempts to reach son: Channing on [phone]. Left a message. I also attempted to contact Fern (Female relative) on [phone] however was unsuccessful at connecting. Patient continues to be critically ill. Will attempt to call again. 10.37am. Son called back. He will come into meet with the team at 13.20. 2.00 PM[address] Super[address] Delivery Department Dr Hensley, RN Senait Wise and Housestaff had an extensive meeting to discuss goals of care. The patient's son was updated on Ms Kessler' progress so far and it was explained the severity and critical nature of this illness. It appears that he has been very involved in her care and would still like the pateint to remain full code. 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 Channing understood the severity and requests that we should allow him to speak to his brothers before he re-evaluates the goals of care. His questions were answered and contacts for the team were given to him. He states he will call the team before 7.00 PM with an update. Will continue to follow.
--- NOTE | 2017-04-04 14:26 | Cons- Cardiology ---
General Information and HPI Consulting Request Date of Consult: 04/04/17 Requested By: Ayden CEDILLO,Tyrone Carey Reason for Consult: Paroxysmal Atrial fibrillation with borderline hypotension Source of Information: old records Exam Limitations: unable to give history, poor historian History of Present Illness: The patient is an 78-year-old female who lives with her son. She has advanced Parkinson's disease and is nonverbal at baseline. She was brought to the emergency him by her son for increasing lethargy and difficulty breathing. The patient has been seen by Dr. Dominguez in the past. I'm covering for him today. No history was available from the patient. History is obtained from the house staff and the nursing staff. According to the [place] information, the patient has had progressive decline over the recent weeks. According to the nurses, earlier today, when being suctioned, she went into atrial fibrillation with rapid ventricular rate. Allergies/Medications Allergies: Coded Allergies: benzethonium chloride (Severe, RASH 04/03/17) Home Med List: Albuterol Sulfate (Proair Hfa) 90 MCG HFA.AER.AD 2 PUF INH Q4-6 PRN PRN BREATHING (Reported) Calcium Carbonate/Vitamin D3 (Caltrate 600 + D Tablet) 600 MG-800 TABLET 1 TAB PO DAILY SUPPLEMENT (Reported) Carbidopa/Levodopa (Carbidopa-Levodopa 25-250 Tab) 25 MG-250 MG TABLET 2 TAB PO DAILY MEMORY (Reported) Citalopram Hydrobromide (Citalopram HBr) 20 MG TABLET 1 TAB PO DAILY DEPRESSION (Reported) Losartan Potassium 25 MG TABLET 1 TAB PO DAILY HTN (Reported) Oxycodone HCl/Acetaminophen (Oxycodone-Acetaminophen 5-325) 5 MG-325 MG TABLET 1 TAB PO BIDP PAIN (Reported) Ranitidine HCl (Zantac) 300 MG TABLET 1 TAB PO QPM GERD Current Medications: Current Medications Sig/Song Start time Last Medication Dose Route Stop Time Status Admin Albuterol Sulfate 3 ML EVERY 4 HRS/AWAKE 04/04 0915 AC 04/04 INH 1237 Albuterol Sulfate 2 PUF Q4-6 PRN PRN 04/04 0430 AC INH Ampicillin Sodium/ 1,500 MG Q12 04/04 1000 AC 04/04 Sulbactam Sodium IV 1043 Sodium Chloride 100 ML Ampicillin Sodium/ 1,500 MG Q6 04/04 0600 DC Sulbactam Sodium IV Sodium Chloride 100 ML Azithromycin 500 MG DAILY 04/04 1000 AC 04/04 Sodium Chloride 250 ML IV 1043 Azithromycin 500 MG ONCE ONE 04/04 0130 DC 04/04 Sodium Chloride 250 ML IV 04/04 0229 0210 Ceftriaxone Sodium 1,000 MG DAILY 04/05 1000 CAN IV Ceftriaxone Sodium 0 .STK-MED ONE 04/04 0208 DC .ROUTE Ceftriaxone Sodium 1,000 MG ONCE ONE 04/04 0130 DC 04/04 IV 04/04 0131 0210 Dextrose 12.5 GM ONCE ONE 04/04 1100 DC 04/04 IV 04/04 1101 1140 Dextrose/Sodium 1,000 ML Q13H 04/04 1330 DC Chloride IV 04/04 2009 Dextrose/Water 1,000 ML Q6H 04/04 1400 AC IV Heparin Sodium 5,000 UNIT Q8 04/04 0600 AC 04/04 (Porcine) SC 1410 Magnesium Sulfate 1 GM Q2H 04/04 1100 DC 04/04 Dextrose/Water 100 ML IV 04/04 1459 1257 Potassium Chloride 10 MEQ Q1H 04/04 1100 DC 04/04 IV 04/04 1201 1411 Potassium Phosphate 15 mMol ONE ONE 04/04 1100 AC 04/04 Dextrose/Water 250 ML IV 04/04 1504 1411 Sodium Chloride 500 ML BOLUS ONE 04/04 0930 DC 04/04 IV 04/04 1029 0929 Sodium Chloride 500 ML BOLUS ONE 04/04 0700 DC 04/04 IV 04/04 0759 0701 Sodium Chloride 1,000 ML BOLUS ONE 04/04 0400 DC 04/04 IV 04/04 0459 0406 Sodium Chloride 1,000 ML .Q10H 04/04 0345 DC 04/04 IV 04/04 2344 0545 Sodium Chloride 1,000 ML ONCE ONE 04/04 0130 DC 04/04 IV 04/04 0131 0155 Sodium Chloride 500 ML BOLUS ONE 04/04 0045 DC 04/04 IV 04/04 0144 0103 Vancomycin HCl 1,000 MG ONCE ONE 04/04 1000 DC 04/04 Sodium Chloride 250 ML IV 04/04 1059 1226 Past History Travel History Traveled to [place] past 21 day No Medical History Neurological: Parkinson's disease, "THORAZINE SHUFFLE" ? 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 Ambulation: walker IADLs Independent: shopping, housework, finances, food prep, telephone, transportation , medication admin. ECHO Results (as available) Date of last Echo 06/01/14 EF% 65 Report: CONCLUSIONS 1. Normal EF of 65% with imparied LV relaxation. 2. Mild left vetricular hypertrophy. 3. Trace tricuspid regurgitation. Exam & Diagnostic Data Vital Signs and I&O Vital Signs Date Time Temp Pulse Resp B/P B/P Pulse O2 O2 Flow FiO2 Mean Ox Delivery Rate 04/04 1239 92 Nasal 50% Cannula 04/04 1200 93 Nasal 50% Cannula 04/04 1028 94 Non 100% ReBreather 04/04 1022 Non 100% ReBreather 04/04 0800 89 Venti Mask 55% 04/04 0800 99.1 108 35 90/48 89 Venti Mask 55% 04/04 0507 92 Non 55% ReBreather 04/04 0507 98.5 109 33 94/54 94 Venti Mask 55% 04/04 0402 98.4 100 18 102/56 99 Venti Mask 55% 04/04 0253 98.3 103 24 102/59 95 Venti Mask 50% 04/04 0157 104 26 95/51 90 Venti Mask 50% 04/04 0040 89 Venti Mask 50% 04/04 0012 30 88 Nasal 5.0L Cannula 04/04 0000 122 30 82/40 78 Room Air Room Air Intake & Output 04/04 1600 04/04 0804/04 0000 04/03 1600 04/03 0804/03 0000 Intake Total 1850 Output Total 0 Balance 1850 Intake, IV 1850 Intake, Oral Number 1 Bowel Movements Output, Urine 0 Patient 98 lb Weight Weight Bed scale Measurement Method Physical Exam: General Appearance elderly female; alert but nonconversant; Moderate Distress Skin normal HEENT Atraumatic, M membranes are dry Neck JVP normal; carotid upstrokes 1-2+ bilaterally with no bruits Lymphatic Axillary nl, Cervical nl Cardiovascular Normal S1, Normal S2, 1 to 2/6 systolic murmur left sternal border Lungs diffuse bilateral rhonchi Abdomen Soft Neurological grossly nonfocal Extremities weak peripheral pulses, cold and dry extremities Labs/Jean Results: Laboratory Tests 04/04 04/04 04/04 1130 1100 UNK Chemistry Sodium Cancelled Potassium Cancelled Chloride Cancelled Carbon Dioxide Cancelled Anion Gap Cancelled BUN Cancelled Creatinine Cancelled Glucose Cancelled Lactic Acid (0.7 - 2.1 mmol/L) 2.1 Calcium Cancelled Phosphorus Cancelled Magnesium Cancelled Total Bilirubin Cancelled AST Cancelled ALT Cancelled Albumin Cancelled Urines Urine Color (YEL,AMB,STR) DINH Urine Clarity (CLEAR) TURBD H Urine pH (5.0 - 8.0) 6.0 Ur Specific [place] (1.001 - 1.035) 1.025 Urine Protein (NEG,<30 MG/DL) 100 H Urine Ketones (NEG) TRACE H Urine Nitrite (NEG) NEG Urine Bilirubin (NEG) NEG@ICTO Urine Urobilinogen (0.1 - 1.0 EU/dl) 0.2 Ur Leukocyte Esterase (NEG) LARGE H Ur Microscopic SEDIMENT EXAMINED Urine RBC (0 - 5 /HPF) PACKD H Urine WBC (0 - 2 /HPF) PACKD H Urine Bacteria (NEG/NONE) PACKD H Urine Hemoglobin (NEG) MOD H Urine Glucose (N MG/DL) NEG 04/04 04/04 04/04 04/04 0834 0824 0700 0600 Blood Gas pH (7.35 - 7.45 PH) 7.43 pCO2 (35 - 45 TORR) 29 L pO2 (80 - 100 TORR) 60 L HCO3 (21 - 28 MEQ/L) 19 L ABG O2 Sat (Measured) (>96.0 %) 89.0 L P-50 (Temp Corrected) N Carboxyhemoglobin (1.5 - 5.0 %) 0.3 L O2 Concentration % .55 O2 Delivery Method V/M Chemistry Sodium (137 - 145 mmol/L) 146 H Potassium (3.5 - 5.1 mmol/L) 3.6 Chloride (98 - 107 mmol/L) 116 H Carbon Dioxide (22 - 30 mmol/L) 20 L Anion Gap (5 - 16) 10 BUN (7 - 17 mg/dL) 37 H Creatinine (0.5 - 1.0 mg/dL) 1.4 H Estimated GFR (>60 ml/min) 35 L Glucose (65 - 99 mg/dL) 60 L Lactic Acid (0.7 - 2.1 mmol/L) Cancelled 2.3 H Cancelled Calcium (8.4 - 10.2 mg/dL) 7.3 L Phosphorus (2.5 - 4.5 mg/dL) 2.9 Magnesium (1.6 - 2.3 mg/dL) 1.3 L Total Bilirubin (0.2 - 1.3 mg/dL) 0.3 AST (14 - 36 U/L) 41 H ALT (9 - 52 U/L) 30 Troponin I (< 0.11 ng/ml) 0.39 *H Albumin (3.5 - 5.0 g/dL) 2.1 L Prealbumin (17.6 - 36.0 mg/dL) 6.4 L Miscellaneous Phlebotomy Draw Site RIGHT RADIAL 04/04 04/04 0422 0235 Blood Gas pH (7.35 - 7.45 PH) 7.45 pCO2 (35 - 45 TORR) 33 L pO2 (80 - 100 TORR) 63 L HCO3 (21 - 28 MEQ/L) 22 ABG O2 Sat (Measured) (>96.0 %) 89.0 L P-50 (Temp Corrected) N Carboxyhemoglobin (1.5 - 5.0 %) 0.3 L O2 Concentration % .55 O2 Delivery Method V/M Chemistry Lactic Acid (0.7 - 2.1 mmol/L) 3.6 H Miscellaneous Phlebotomy Draw Site RIGHT RADIAL 04/04 0100 Chemistry Sodium (137 - 145 mmol/L) 145 Potassium (3.5 - 5.1 mmol/L) 4.5 Chloride (98 - 107 mmol/L) 104 Carbon Dioxide (22 - 30 mmol/L) 21 L Anion Gap (5 - 16) 20 H BUN (7 - 17 mg/dL) 40 H Creatinine (0.5 - 1.0 mg/dL) 1.7 H Estimated GFR (>60 ml/min) 28 L BUN/Creatinine Ratio (7 - 25 %) 23.5 Glucose (65 - 99 mg/dL) 68 Lactic Acid (0.7 - 2.1 mmol/L) 7.5 H Calcium (8.4 - 10.2 mg/dL) 9.6 Total Bilirubin (0.2 - 1.3 mg/dL) 0.7 AST (14 - 36 U/L) 49 H ALT (9 - 52 U/L) 20 Alkaline Phosphatase (<127 U/L) 113 Troponin I (< 0.11 ng/ml) 0.42 *H Total Protein (6.3 - 8.2 g/dL) 7.3 Albumin (3.5 - 5.0 g/dL) 3.2 L Globulin (1.9 - 4.2 gm/dL) 4.1 Albumin/Globulin Ratio (1.1 - 2.2 %) 0.8 L TSH (0.270 - 4.200 uIU/mL) 1.660 Hematology CBC w Diff MAN DIFF ORDERED WBC (4.8 - 10.8 /CUMM) 37.0 *H RBC (4.20 - 5.40 /CUMM) 4.75 Hgb (12.0 - 16.0 G/DL) 13.2 Hct (37 - 47 %) 40.5 MCV (81.0 - 99.0 FL) 85.3 MCH (27.0 - 31.0 PG) 27.8 RDW (11.5 - 14.5 %) 14.8 H Plt Count (130 - 400 /CUMM) 456 H MPV (7.4 - 10.4 FL) 9.7 Gran % (42.2 - 75.2 %) 96.5 H Lymphocytes % (20.5 - 51.1 %) 3.0 L Monocytes % (1.7 - 9.3 %) 0.4 L Eosinophils % (0 - 5 %) 0 Basophils % (0.0 - 2.0 %) 0.1 Absolute Granulocytes (1.4 - 6.5 /CUMM) 35.7 H Segmented Neutrophils (42.2 - 75.2 %) 71 Band Neutrophils (0.0 - 5.0 %) 27 H Absolute Lymphocytes (1.2 - 3.4 /CUMM) 1.1 L Lymphocytes (20.5 - 51.1 %) 2 L Absolute Monocytes (0.10 - 0.60 /CUMM) 0.2 Absolute Eosinophils (0.0 - 0.7 /CUMM) 0 Absolute Basophils (0.0 - 0.2 /CUMM) 0 Platelet Estimate (ADEQUATE) INCREASED Polychromasia 1+ Hypochromic-Microcytic 1+ Poikilocytosis 1+ Ovalocytes 1+ PUBS MCHC (33.0 - 37.0 G/DL) 32.6 L Other Body Source Fld Total RBCs Counted (%) 100 Diagnostic Data EKG Results Atrial fibrillation with a rapid ventricular rate and nonspecific ST-T changes CXR Results FINDINGS: There is a redemonstrated large hiatal hernia producing lucency over the left lateral cardiac silhouette. There are bilateral perihilar opacities which are increased with comparison to the prior chest radiograph. No pleural effusion. No pneumothorax. Cardiomediastinal silhouette is stable. No acute osseous abnormalities. Right shoulder arthroplasty hardware noted. Degenerative changes in the left shoulder. IMPRESSION: 1. Bilateral perihilar opacities which are increased from the prior chest radiograph. Suspect pneumonia. 2. Redemonstrated large hiatal hernia. Assessment/Plan Assessment/Plan Assessment: 1. Atrial fibrillation with rapid ventricular rate 2. Hypotension 3. Elevated troponin consistent with type II LA 4. Sepsis likely related to pneumonia 5. Acute renal insufficiency Recommendations: -Continue current supportive care. -Continue antibiotics -Fluid resuscitation as outlined. -If the patient remains in atrial fibrillation with a rapid rate, consider amiodarone 75 mg IV with subsequent amiodarone drip for rate control and possible reversion to sinus rhythm -Echocardiogram reviewed. The patient's left ventricular function is normal with an ejection fraction of at least 75-80%. Consult Acknowledgment - Thank you for your consult request.
[2017-04-04 16:00] VITALS: BP 100/50
--- NOTE | 2017-04-04 19:09 | Event Note ---
Event Note Event Note: Her son Channing who is her POA, called and requested that his mother be made DNR /DNI. No aggressive measures including central lines should be undertaken.
[2017-04-04 23:59] VITALS: BP 90/50
[2017-04-05 05:36] LABS: ABSOLUTE BASOPHIL COUNT 0 /CUMM (0.0-0.2); ABSOLUTE EOSINOPHIL COUNT 0 /CUMM (0.0-0.7); ABSOLUTE GRANULOCYTE CT 21.9 /CUMM (1.4-6.5); ABSOLUTE MONOCYTE COUNT 0.1 /CUMM (0.10-0.60); BASOPHIL % 0 % (0.0-2.0); EOSINOPHIL % 0 % (0-5); GRANULOCYTE % 95.2 % (42.2-75.2); MEAN CORPUSCULAR HGB 28.6 PG (27.0-31.0); MEAN CORPUSCULAR HGB CONC 32.8 G/DL (33.0-37.0); MEAN CORPUSCULAR VOLUME 87.2 FL (81.0-99.0); MEAN PLATELET VOLUME 9.1 FL (7.4-10.4); PLATELET COUNT 308 /CUMM (130-400); RBC DISTRIBUTION WIDTH 14.5 % (11.5-14.5)
[2017-04-05 05:50] LABS: HEMATOCRIT 29.5 % (37-47); RED BLOOD CELL CT 3.38 /CUMM (4.20-5.40)
--- NOTE | 2017-04-05 05:50 | Event Note ---
Event Note Event Note: S: Alerted by the nurse that the patient has been desaturating to a low of 78%, patient was on high flow NC and switched to nonrebreather mask B: Patient was admitted for sepsis, secondary to TX, a cannula, failure to thrive with high risk of aspiration. Ongoing goals of care discussions have been had with the patient's patient's son and POA, Channing who changed her code to DNR/DNI and is requesting no aggressive measures be taken. AR: Patient was examined at bedside, VS: P 95, BP 83/42, RR 33, PO2 85% on nonrebreather mask. Patient had increased work of breathing, and was coughing. Patient had been seen by respiratory therapy twice since she began desaturating. Patient was switched from D5 water to D5 normal saline, discussed plan of care with resident Dr. Horton and Noctournist, Dr. Pearson. Patient's son, Channing, was informed of the situation and requested we continue with conservative management and keep him updated of any changes.
[2017-04-05 08:00] VITALS: BP 110/52
--- NOTE | 2017-04-05 08:44 | PN- Resident CRCU ---
Fawad Buenrostro 04/05/17 0843: Subjective HPI/CRCU Issues: Sepsis 2/2 PNA WILLIS 2/2 to poor oral intake and dehydration Type II HI 2/2 demand ischemia Afib with RVR 24 Hour Events: Patient continues to deteriorate. Patient was hypoxic overnight and required a NRB. Son was called and her status was changed to DNR. Objective Vital Signs & I&O Last 8 Hrs of Vitals and I&O: Intake & Output 04/05 1600 Intake Total Output Total Balance Patient 99 lb 0.01 oz Weight Exam General Appearance: cachetic, severe distress Head: atraumatic, normal appearance Ears, Nose, Throat: normal pharynx, normal ENT inspection, hearing grossly normal Neck: normal inspection, supple, full range of motion Respiratory: accessory muscle use, rhonchi Cardiovascular: regular rate/rhythm Gastrointestinal: normal bowel sounds, soft, non-tender Extremities: normal range of motion, no edema, BL feet and R hand contractures Current Medications: Current Medications Sig/Song Start time Last Medication Dose Route Stop Time Status Admin Acetylcysteine 2 ML BID 04/05 1000 DC INH Albuterol Sulfate 3 ML Q4P PRN 04/05 1145 AC INH Albuterol Sulfate 3 ML EVERY 4 HRS/AWAKE 04/04 0915 DC 04/05 INH 0918 Albuterol Sulfate 2 PUF Q4-6 PRN PRN 04/04 0430 AC INH Ampicillin Sodium/ 1,500 MG Q12 04/04 1000 DC 04/05 Sulbactam Sodium IV 0953 Sodium Chloride 100 ML Azithromycin 500 MG DAILY 04/04 1000 DC 04/05 Sodium Chloride 250 ML IV 0953 Calcium Gluconate 1 GM ONCE ONE 04/04 2115 DC 04/04 Sodium Chloride 100 ML IV 04/04 2214 2213 Dextrose 25 GM ONCE ONE 04/04 2230 DC 04/04 IV 04/04 2231 2227 Dextrose/Sodium 1,000 ML Q6H 04/05 0545 DC 04/05 Chloride IV 0602 Dextrose/Sodium 1,000 ML Q13H 04/04 1330 DC Chloride IV 04/04 2009 Dextrose/Water 1,000 ML Q6H 04/04 1400 DC 04/05 IV 0525 Glycopyrrolate 200 MCG Q4 HRS NEEDED PRN 04/05 1030 AC 04/05 IV 1038 Guaifenesin/ 10 ML Q6P PRN 04/04 1915 CAN Dextromethorphan PO Heparin Sodium 5,000 UNIT Q8 04/04 0600 DC 04/05 (Porcine) SC 0525 Lorazepam 2 MG Q1 NEEDED PRN 04/05 1045 AC 04/05 IV 1056 Magnesium Sulfate 1 GM Q2H 04/04 1100 DC 04/04 Dextrose/Water 100 ML IV 04/04 1459 1257 Morphine Sulfate 4 MG ONCE ONE 04/05 1045 DC 04/05 IV 04/05 1046 1039 Morphine Sulfate 2 MG Q1 PRN 04/05 1045 AC 04/05 IV 1146 Potassium Phosphate 15 mMol ONE ONE 04/04 1100 DC 04/04 Dextrose/Water 250 ML IV 04/04 1504 1411 Scopolamine HBr 1 PAT Q72H 04/05 1030 AC 04/05 TOP 1116 Sodium Chloride 1,000 ML .Q10H 04/04 0345 DC 04/04 IV 04/04 2344 0545 Impression/Plan Impression/Problem List Impression: This is an 86-year-old woman with very poor performance and failure to thrive and multiple comorbidities was admitted for sepsis. Sepsis 2/2 PNA On admission CXR demonstrated BLE perihilar opacities suspicious for PNA. Streptococcus urine antigen reported positive * TRC/nebs PRN * Continue oxygen supplementation * Continue IV Unasyn and IV azithromycin * Follow up pancultures and sensitivities Deconditioning * PT/OT Afib with RVR * Cardiology recommendations appreciated WILLIS 2/2 to poor oral intake and dehydration * Continue IV hydration for lactic acidosis and WILLIS Type II HI 2/2 demand ischemia * Cardiology recommendations appreciated * Serial ECG/Trop to r/o ACS History of dysphagia, hiatal hernia * ST for bedside swallow evaluation * hold her by mouth antihypertensive medication Code status has been changed to Comfort measures Patient's son is her power of privacy attorney His phone #[phone] FC/ central line heprain 5000 U SQ h8 Problem List: 1. Pneumonia 2. Sepsis Pain Ratin Tomorrow's Labs & Rationales: CBC, Bundle Plan DVT/Prophylaxis: Maxime Oliveira MD 04/05/17 1029: Attending MD Review Statement Attending Sign Off Attending Cosign Statement: I have: examined this patient, reviewed aval EMR data, personally reviewd images, discussd w/resident/PA/TIMEKEEPER, discussed mgmt plan w/zainab, discussed mgmt plan w/CM, discussed mgmt plan w/pt, agreed w/resident/PA/TIMEKEEPER, amended to note. Other Findings: Impression 86 year old woman with severe sespis with respiratory failure secondary to s. pneumo pneumonia -currently DNR/DNI, plan for comfort measures Plan -gerson Jerome - conversation was had with Dr. Hensley previously -family is ready for comfort care -we will pursue comfort measures -morphine for discomfort and dyspnea -ativan for anxiolysis DG to Hospice evaluation TTS 35 min no aggressive measures
--- NOTE | 2017-04-05 09:09 | ECHOCARDIOGRAM REPORT ---
LINDSAY BROOKS Age: 86 : 1930 Gender: F Exam Date: 04/04/2017 09:25 Exam Location: [facility] Ht (in): 56 Wt (lb): 97 BSA: 1.33 BP: 94 / 54 Ordering Physician: Fawad Buenrostro MD Referring Physician: Fawad Buenrostro MD Technologist: Chu Najera FELECIA Room Number: 103 Indications: HYPERTENSION Rhythm: Atrial fibrillation Technical Quality: Fair FINDINGS Left Ventricle Normal size left ventricle. No obvious regional wall motion abnormalities. Hyperdynamic left ventricular systolic function. Right Ventricle Right ventricle not well visualized, grossly normal. Right Atrium Normal right atrial size. Left Atrium Left atrial dilatation. Mitral Valve Mitral valve thickened. Mitral annular calcification. Trace to mild mitral regurgitation. Aortic Valve Trileaflet aortic valve. Diffuse thickening (sclerosis) of the aortic valve cusps without reduced excursion. No aortic stenosis. No aortic regurgitation. Tricuspid Valve Tricuspid valve not well visualized, grossly normal. Mild tricuspid regurgitation. Pulmonic Valve Pulmonic valve not well visualized, grossly normal. Mild pulmonic regurgitation. Pericardium No pericardial effusion. Great Vessels Aortic root and proximal ascending aorta not well visualized, grossly normal. CONCLUSIONS 1. This was a technically difficult study 2. Minimal to mild aortic sclerosis is present with no valvular stenosis or insufficiency. 3. Mitral leaflet thickening is present with mild annular calcification and minimal to mild mitral insufficiency with left atrial enlargement 4. No significant pericardial fluid was detected on the study. 5. The left ventricular chamber size is normal. The left ventricular systolic function is hyperdynamic with an ejection fraction of greater than 75-80% and no visible resting wall motion abnormalities. There is mild resting left ventricular outflow tract obstruction present with a resting outflow tract gradient of 18 mmHg noted. 6. Right heart structures were not optimally visualized. Mild tricuspid and pulmonic insufficiency are present. Estimated right ventricular systolic pressure is 34 mmHg. 7. Atheromatous plaque is noted in the visualized portion of the abdominal aorta. Robert Brito M.D. (Electronically Signed) Final Date: 05 April 2017 09:09 MEASUREMENTS (Male / Female) Normal Values 2D ECHO LV Diastolic Diameter PLAX 2.6 cm 4.2 - 5.9 / 3.9 - 5.3 cm LV Systolic Diameter PLAX 1.9 cm 2.1 - 4.0 cm LV Fractional Shortening PLAX 26.9 % 25 - 46 % LV Ejection Fraction 2D Teich 54.6 % IVS Diastolic Thickness 1.0 cm LVPW Diastolic Thickness 0.9 cm LV Relative Wall Thickness 0.7 RV Internal Dim ED PLAX 2.4 cm 1.9 - 3.8 cm LVOT Diameter 1.8 cm Aortic Root Diameter 2.9 cm LA Systolic Diameter LX 3.2 cm 3.0 - 4.0 / 2.7 - 3.8 cm LA Volume 32.0 cm 18 - 58 / 22 - 52 cm Ascending Aorta Diameter 3.0 cm DOPPLER AV Peak Velocity 157.0 cm/s AV Peak Gradient 9.9 mmHg AV Mean Velocity 119.0 cm/s AV Mean Gradient 6.0 mmHg AV Velocity Time Integral 30.9 cm LVOT Peak Velocity 111.0 cm/s LVOT Peak Gradient 4.9 mmHg LVOT Mean Velocity 79.8 cm/s LVOT Mean Gradient 3.0 mmHg LVOT Velocity Time Integral 26.6 cm LVOT Stroke Volume 67.7 cm AV Area Cont Eq vti 2.2 cm AV Area Cont Eq pk 1.8 cm MV Peak Velocity 125.0 cm/s MV Peak Gradient 6.3 mmHg MV Mean Velocity 68.9 cm/s MV Mean Gradient 3.0 mmHg Mitral E Point Velocity 101.0 cm/s MV PHT Velocity 125.0 cm/s MV Deceleration Yancey 1559.0 cm/s MV Pressure Half Time 24.1 ms MV Area PHT 9.1 cm MV Deceleration Time 120.0 ms MR Peak Velocity 143.0 cm/s MR Peak Gradient 8.2 mmHg TR Peak Velocity 265.0 cm/s TR Peak Gradient 28.1 mmHg Right Atrial Pressure 10.0 mmHg Pulmonary Artery Systolic Pressu 38.1 mmHg Right Ventricular Systolic Press 38.1 mmHg PV Peak Velocity 110.0 cm/s PV Peak Gradient 4.8 mmHg PV Mean Velocity 76.8 cm/s PV Mean Gradient 3.0 mmHg PV Velocity Time Integral 17.5 cm
--- NOTE | 2017-04-05 10:25 | Event Note ---
Event Note Event Note: Patient having continued desaturation to 70s and tachypneic. Called and spoke to her son around 10:30am. Updated him on her deteriorating status and possiblity of her passing away. Explained the option of comfort measures. He is agreeable to making her Comfort at this time.
[2017-04-05 16:00] VITALS: BP 42/0
[2017-04-05 23:00] VITALS: BP 42/0
--- NOTE | 2017-04-06 04:05 | Event Note ---
Event Note Event Note: Around 3:45am, called by the nurse that the patient is bradycardic to the 20s as well as and respiratory distress. Of note she was already made comfort earlier on in the evening. When myintern Dr. Miranda and I went to examine the patient, she did not have a pulse, or any respirations. Pupils were fixed and dilated with corneal reflex absent. There were no heart sounds. Time of was declared 3:50am on 04/06/2017. Patient's son Mr. Snell was informed. He refused to have an autopsy performed. Attending was notified.
--- NOTE | 2017-04-07 16:48 | Discharge Summary ---
Visit Information Visit Dates Admission Date: 04/04/17 Discharge Date: 04/06/17 Hospital Course Course Attending Physician: Tyrone Hensley MD Primary Care Physician: Handy Sousa MD Hospital Course: Ms. Jerome is a 86 yo f with a H Hypertension, Hyperlipidemia, Hiatal hernia , Phelan's esophagus, GI bleed, Parkinsonism, dysphagia, nonverbal who presented with progressively worsened lethargy and dyspnea. She was admitted the ICU for Sepsis. Time of was declared 3:50 am on 04/06/2017. Active issues: Acute hypoxic respiratory failure She was initially placed on a ventimask, then a nonrebreather and subsequently transitioned to 4L oxygen supplementation via nasal cannula with flunctuating O2 sats. Patient was found to be using accessory muscles to breath throughout her stay. Patient continued to deteriorate and her code status was changed to comfort care. Approximately 3:45 am on 04/06/17 the patient was bradycardic, HR 20s as well as and in respiratory distress. Time of was declared 3:50 am on 04/06/2017. Sepsis secondary to PNA On admission her white count was highly elevated at 37,000 with bandemia. Her lactic acid was 7.5. CXR demonstrated BLE perihilar opacities suspicious for PNA. Pancultures were sent. Streptococcus urine antigen was positive. She was started on IV Unasyn and IV Azithromycin. She was hypotensive and administered fluid resuscitation. WILLIS most likely secondary to dehydration On admission her creatinine was 1.7 and BUN 40 but eventually trended down. We administered IV fluids for lactic acidosis and WILLIS Elevated Troponins most likely secondary to Type II [place] demand ischemia Cardiology was consulted. Serial ECG and Troponins were done to rule out ACS Afib with RVR Patient was in Afib during her stay. It was unclear if the patient had a history of Afib. Cardiology was consulted. ECHO was done that reported a normal Left ventricular function with an EF of 75-80%. No other medical interventions were done. History of dysphagia, hiatal hernia CXR demonstrated a large hiatal hernia producing lucency over the left lateral cardiac silhouette. Her oral medications were held. No other medical interventions were done. Code: Comfort care as per POA request Allergies: Coded Allergies: benzethonium chloride (Severe, RASH 04/03/17) Pertinent Lab Results: 04/04/17-0047 XRY-PORTABLE CHEST XRAY IMPRESSION: 1. Bilateral perihilar opacities which are increased from the prior chest radiograph. Suspect pneumonia. 2. Redemonstrated large hiatal hernia. 04/04/17 ECHOCARDIOGRAM CONCLUSIONS: 1. This was a technically difficult study 2. Minimal to mild aortic sclerosis is present with no valvular stenosis or insufficiency. 3. Mitral leaflet thickening is present with mild annular calcification and minimal to mild mitral insufficiency with left atrial enlargement 4. No significant pericardial fluid was detected on the study. 5. The left ventricular chamber size is normal. The left ventricular systolic function is hyperdynamic with an ejection fraction of greater than 75-80% and no visible resting wall motion abnormalities. There is mild resting left ventricular outflow tract obstruction present with a resting outflow tract gradient of 18 mmHg noted. 6. Right heart structures were not optimally visualized. Mild tricuspid and pulmonic insufficiency are present. Estimated right ventricular systolic pressure is 34 mmHg. 7. Atheromatous plaque is noted in the visualized portion of the abdominal aorta. Disposition Summary Disposition Principal Diagnosis: Sepsis 2/2 PNA Additional Diagnosis: Acute hypoxic respiratory failure Hypotension Elevated troponin 2/2 type II KS Acute renal insufficiency 2/2 dehydration Lactic acidosis Discharge Disposition: Discharge Instructions General Discharge Information Code Status: Comfort Care Only Patient's Diet: NPO Patient's Activity: As tolerated Follow-Up Instructions/Appts: None Copies To: Merry CEDILLO,Handy Jang
== END 2017-04-06 03:50 | disposition expired | DRG 871 ==
LOC: ERH 23:17 → ERHI 04-04 02:08 → CRI 04-04 02:08 → ENRESERV 04-04 04:12 → CRI 04-04 04:59
PROVIDERS: Emergency Medicine; Student in an Organized Health Care Education/Training Program
DX: A41.9 Sepsis, unspecified organism (principal); J69.0 Pneumonitis due to inhalation of food and vomit; I21.A1 Myocardial infarction type 2; J96.01 Acute respiratory failure with hypoxia; E43 Unspecified severe protein-calorie malnutrition; R65.21 Severe sepsis with septic shock; L89.151 Pressure ulcer of sacral region, stage 1; E87.3 Alkalosis; E87.2 Acidosis; R13.10 Dysphagia, unspecified; N17.9 Acute kidney failure, unspecified; Z68.22 Body mass index [BMI] 22.0-22.9, adult; E86.0 Dehydration; K44.9 Diaphragmatic hernia without obstruction or gangrene; G20 Parkinson's disease; F02.80 Dementia in other diseases classified elsewhere, unspecified severity, without behavioral disturbance, psychotic disturbance, mood disturbance, and anxiety; R62.7 Adult failure to thrive; I10 Essential (primary) hypertension; E78.5 Hyperlipidemia, unspecified; H91.90 Unspecified hearing loss, unspecified ear; I25.2 Old myocardial infarction; K21.9 Gastro-esophageal reflux disease without esophagitis; F41.9 Anxiety disorder, unspecified; I48.91 Unspecified atrial fibrillation; J44.9 Chronic obstructive pulmonary disease, unspecified; M81.0 Age-related osteoporosis without current pathological fracture; Z66 Do not resuscitate; Z51.5 Encounter for palliative care
CPT/HCPCS: CCU; 36415; 71045; 81001; 82436; 87040; 87070; 87086; 87449; 87450; 87804; 87804-59; 93005; 93010; 93306; 94799; 96361; 96365; 99291; J0456; J0610; J0696; J1644; J2270; J3370; J3490; J7040; J7042; J7060; J7608